=== PATIENT | female | born 1965 | race Hispanic/Latino ===

== ENCOUNTER 2018-06-24 00:46 | Emergency (ER) | payer BC, MEDICAID ==
[2018-06-24] MEDS ORDERED: KETOROLAC TROMETHAMINE 30MG/ML ONE (01:37)
[2018-06-24 01:42] LABS: APPEARANCE,URINE Clear (CLEAR); BILIRUBIN,URINE Negative (NEGATIVE); COLOR,URINE Yellow (YELLOW); GLUCOSE, URINE (UA) Negative (NEGATIVE); KETONES,URINE Trace mg/dL (NEGATIVE); LEUKOCYTE ESTERASE ,URINE Trace (NEGATIVE); NITRATE,URINE Negative (NEGATIVE); OCCULT BLOOD,URINE Negative (NEGATIVE); PH,URINE 6.5 (5.0-8.0); PROTEIN,URINE Negative (NEGATIVE); UROBILINOGEN,URINE 0.2 mg/dL (0.2-1.0)
[2018-06-24 01:53] LABS: CREATININE 0.7 mg/dL (0.5-1.5); POTASSIUM 3.4 mmol/L (3.5-5.1)
[2018-06-24 01:57] LABS: BASOPHILS % (AUTO) 3.1 % (0.0-5.0); EOSINOPHILS % (AUTO) 1.7 % (0.0-8.0); HEMATOCRIT 39.4 % (36-48); MEAN CORPUSCULAR HEMOGLOBIN 31.6 pg (27.0-33.0); MEAN CORPUSCULAR HGB CONC 34.5 g/dL (32.0-36.0); MEAN CORPUSCULAR VOLUME 91.6 fL (79-99); NEUTROPHILS % (AUTO) 68.2 % (40.0-77.0); PLATELET COUNT (AUTO) 286 K/uL (130-400); RED CELL DISTRIBUTION WIDTH 12.1 % (11.0-15.5); WHITE BLOOD COUNT (AUTO) 8.7 K/uL (4.8-10.8)
[2018-06-24 02:03] LABS: ALBUMIN 3.9 g/dL (3.5-5.0); BILIRUBIN,TOTAL 0.4 mg/dL (0.2-1.0); TOTAL PROTEIN, SERUM 7.6 g/dL (6.0-8.3)
[2018-06-24 02:05] LABS: BACTERIA,URINE Rare /HPF (None Seen); RBC,URINE 0-1 /HPF (0-1); SQUAMOUS EPITHELIAL CELL,UR 0-2 /HPF (0-2)
[2018-06-24 03:10] LABS: AMPHET/METH SCREEN,URINE NEGATIVE (NEGATIVE); BARBITURATE SCREEN, URINE NEGATIVE (NEGATIVE); BENZODIAZEPINES SCREEN,URINE NEGATIVE (NEGATIVE); CANNABINOID SCREEN,URINE NEGATIVE (NEGATIVE); COCAINE SCREEN,URINE NEGATIVE (NEGATIVE); OPIATE SCREEN,URINE NEGATIVE (NEGATIVE); PHENCYCLIDINE SCREEN,URINE NEGATIVE (NEGATIVE)
== END 2018-06-24 03:11 | disposition home or self-care (01) ==
LOC: EDH 00:46
DX: R07.89 Other chest pain (principal); J01.90 Acute sinusitis, unspecified; E11.9 Type 2 diabetes mellitus without complications; I10 Essential (primary) hypertension; F41.9 Anxiety disorder, unspecified
CPT/HCPCS: 36415; 70450; 80053; 80305; 81001; 82550; 83690; 84484; 85025; 93005; 96374; 99284; J1885

== ENCOUNTER 2018-10-07 20:24 | Emergency (ER) | payer BC, MEDICAID ==
[2018-10-07 20:55] LABS: APPEARANCE,URINE Clear (CLEAR); BILIRUBIN,URINE Negative (NEGATIVE); COLOR,URINE Yellow (YELLOW); GLUCOSE, URINE (UA) Negative (NEGATIVE); KETONES,URINE Negative (NEGATIVE); LEUKOCYTE ESTERASE ,URINE Negative (NEGATIVE); NITRATE,URINE Negative (NEGATIVE); OCCULT BLOOD,URINE Negative (NEGATIVE); PH,URINE 6.5 (5.0-8.0); PROTEIN,URINE Negative (NEGATIVE); UROBILINOGEN,URINE 0.2 mg/dL (0.2-1.0)
[2018-10-07 21:03] LABS: AMPHET/METH SCREEN,URINE NEGATIVE (NEGATIVE); BARBITURATE SCREEN, URINE NEGATIVE (NEGATIVE); BENZODIAZEPINES SCREEN,URINE NEGATIVE (NEGATIVE); CANNABINOID SCREEN,URINE NEGATIVE (NEGATIVE); COCAINE SCREEN,URINE NEGATIVE (NEGATIVE); OPIATE SCREEN,URINE NEGATIVE (NEGATIVE); PHENCYCLIDINE SCREEN,URINE NEGATIVE (NEGATIVE)
[2018-10-07 21:07] LABS: BASOPHILS % (AUTO) 0.7 % (0.0-5.0); HEMATOCRIT 39.7 % (36-48); MEAN CORPUSCULAR HEMOGLOBIN 31.7 pg (27.0-33.0); MEAN CORPUSCULAR HGB CONC 34.2 g/dL (32.0-36.0); MEAN CORPUSCULAR VOLUME 92.7 fL (79-99); MONOCYTES % (AUTO) 5.5 % (3.0-13.0); NEUTROPHILS % (AUTO) 58.8 % (40.0-77.0); PLATELET COUNT (AUTO) 347 K/uL (130-400); RED BLOOD CELL COUNT(AUTO) 4.29 MIL/uL (4.00-5.50); RED CELL DISTRIBUTION WIDTH 12.8 % (11.0-15.5); WHITE BLOOD COUNT (AUTO) 14.5 K/uL (4.8-10.8)
[2018-10-07 21:16] LABS: INR 0.93 (0.85-1.15); PARTIAL THROMBOPLASTIN TIME 28.9 SEC (26.3-35.5); PROTHROMBIN TIME 9.8 SEC (9.6-11.6)
[2018-10-07 21:18] LABS: CREATININE 0.9 mg/dL (0.5-1.5); POTASSIUM 4.4 mmol/L (3.5-5.1)
[2018-10-07] MEDS ORDERED: SODIUM CHLORIDE 0.9% 1000ML 1,000 ML IV ONE (21:22)
[2018-10-07 21:23] LABS: ALBUMIN 3.8 g/dL (3.5-5.0); BILIRUBIN,TOTAL 0.5 mg/dL (0.2-1.0); TOTAL PROTEIN, SERUM 8.5 g/dL (6.0-8.3)
== END 2018-10-07 22:46 | disposition home or self-care (01) ==
LOC: EDH 20:24
DX: F41.1 Generalized anxiety disorder (principal); R55 Syncope and collapse; I10 Essential (primary) hypertension; E11.9 Type 2 diabetes mellitus without complications; Z98.890 Other specified postprocedural states
CPT/HCPCS: 36415; 71045; 80053; 80305; 81003; 82550; 84484; 85025; 85610; 85730; 93005; 96360; 99285; J7030

== ENCOUNTER 2024-02-13 01:54 | Emergency (ER) | payer BC, MEDICAID ==
[~2024-02-13] VITALS: Ht 160 cm; Wt 81.6 kg
--- NOTE | 2024-02-13 01:58 | NUR ---
UA CUP PROVIDED
[2024-02-13] MEDS: LACTATED RINGERS 1000ML 1,000 ML IV ONE (02:14)
[2024-02-13] MEDS: ondanSETRON 4MG INJ IVP ONE (02:15)
[2024-02-13] MEDS: PANTOPrazole 40 MG/VIAL IVP ONE (02:15)
[2024-02-13 02:20] LABS: BASOPHILS # (AUTO) 0.08 K/uL (0.00-0.20); EOSINOPHILS % (AUTO) 2.4 % (0.0-8.0); HEMATOCRIT 44.3 % (36-48); IMMATURE GRANULOCYTE ABSOLUTE 0.03 K/uL (0-1); LYMPHOCYTES # (AUTO) 4.9 K/uL (1.0-4.8); LYMPHOCYTES % (AUTO) 58.8 % (21.0-51.0); MEAN CORPUSCULAR HEMOGLOBIN 30.7 pg (27.0-33.0); MEAN CORPUSCULAR HGB CONC 33.6 g/dL (32.0-36.0); MEAN CORPUSCULAR VOLUME 91.3 fL (79-99); MONOCYTES # (AUTO) 0.8 K/uL (0.1-1.0); MONOCYTES % (AUTO) 9.6 % (3.0-13.0); NEUTROPHILS # (AUTO) 2.3 K/uL (1.8-7.7); NEUTROPHILS % (AUTO) 27.8 % (40.0-77.0); PLATELET COUNT (AUTO) 282 K/uL (130-400); RED BLOOD CELL COUNT(AUTO) 4.85 MIL/uL (4.00-5.50); RED CELL DISTRIBUTION WIDTH 12.2 % (11.0-15.5); WHITE BLOOD COUNT (AUTO) 8.3 K/uL (4.8-10.8)
[2024-02-13 02:25] LABS: APPEARANCE,URINE CLEAR (CLEAR); BILIRUBIN,URINE NEGATIVE (NEGATIVE); COLOR,URINE COLORLESS (YELLOW); GLUCOSE, URINE (UA) TRACE mg/dL (NEGATIVE); KETONES,URINE NEGATIVE (NEGATIVE); LEUKOCYTE ESTERASE ,URINE NEGATIVE Leu/uL (NEGATIVE); NITRATE,URINE NEGATIVE (NEGATIVE); OCCULT BLOOD,URINE NEGATIVE (NEGATIVE); PH,URINE 5.5 (5.0-8.0); PROTEIN,URINE NEGATIVE (NEGATIVE); UROBILINOGEN,URINE 0.2 mg/dL (0.2-1.0)
[2024-02-13 02:26] LABS: ADD UA MICROSCOPIC YES
[2024-02-13 02:28] LABS: BACTERIA,URINE RARE /HPF (None Seen); RBC,URINE 0-1 /HPF (0-1); SQUAMOUS EPITHELIAL CELL,UR RARE /HPF (0-2); WBC,URINE 0-1 /HPF (0-1)
[2024-02-13 02:29] LABS: POTASSIUM 3.9 mmol/L (3.5-5.1)
[2024-02-13 02:34] LABS: INR 0.97 (0.85-1.15); MAGNESIUM 1.9 mg/dL (1.80-2.40); PROTHROMBIN TIME 10.5 SEC (9.6-11.6)
[2024-02-13 02:40] LABS: B-TYPE NATRIURETIC PEPTIDE < 5 pg/mL (0-100)
[2024-02-13] MEDS ORDERED: PANT40TA55 PO (02:58)
--- NOTE | 2024-02-13 02:58 | ERN ---
General Chief Complaint: Multiple Complaints Stated Complaint: PANIC ATTACK, CHEST PAIN, ABD PAIN Time Seen by MD: 01:56 Source: patient History of Present Illness Initial Comments PATIENT IS A 58-YEAR-OLD FEMALE COMING IN TO BE EVALUATED FOR CHEST PRESSURE. PATIENT STATES THAT CHEST PRESSURE HAS BEEN ONGOING FOUR DAYS. SHE NOTICES THE CHEST PRESSURE MORE WHEN SHE LAYS DOWN USUALLY AT NIGHT. THE CHEST PRESSURE CAUSES HER TO BE VERY ANXIOUS SHE DECIDED TO COME IN TO BE EVALUATED Allergies: Coded Allergies: No Known Allergies (Unverified Allergy, Unknown, 02/13/24) Past Medical History Past Medical History: Anxiety, Diabetes-Type II, Hypertension, Kidney Stone Past Surgical History: Other Surgical History Other: LEFT LEG ROS Dictation CONSTITUTIONAL: NO CHILLS, NO FEVER, NO WEAKNESS, NO DIAPHORESIS, NO MALAISE. HEAD/FACE: NO SIGNS OF TRAUMA. EENT: NO EYE PAIN, NO BLURRED VISION, NO TEARING, NO DOUBLE VISION, NO EAR PAIN, NO EAR DISCHARGE, NO NOSE PAIN, NO NASAL CONGESTION, NO THROAT PAIN, NO THROAT SWELLING, NO MOUTH PAIN. RESPIRATORY: NO COUGH, NO ORTHOPNEA, NO SOB, NO STRIDOR, NO WHEEZING. CARDIOVASCULAR: CHEST PAIN, NO EDEMA, NO PALPITATIONS, NO SYNCOPE. GASTROINTESTINAL/ABDOMINAL: NO ABDOMINAL PAIN, NO CONSTIPATION, NO DIARRHEA, NO NAUSEA, NO VOMITING. GENITOURINARY: NO ABNORMAL DISCHARGE, NO DYSURIA, NO FREQUENT URINATION, NO HEMATURIA. NO COMPLAINTS OF PAIN IN THE GENITALS. MUSCULOSKELETAL: NO BACK PAIN, NO GOUT, NO JOINT PAIN, NO JOINT SWELLING, NO MUSCLE PAIN, NO MUSCLE STIFFNESS, NO NECK PAIN. INTEGUMENTARY: NO CHANGE IN COLOR, NO CHANGE IN HAIR/NAILS, NO DRYNESS, NO LESION, NO LUMPS, NO RASH. NEUROLOGICAL/PSYCH: NO ANXIETY, NOT DEPRESSED, NO EMOTIONAL PROBLEM, NO HEADACHE, NO NUMBNESS, NO PRE-EXISTING DEFICIT, NO HISTORY OF SEIZURES, NO TREMORS, NO WEAKNESS. HEMATOLOGIC/LYMPHATIC: NOT ANEMIC, NO HISTORY OF BLOOD CLOTS, NO APPARENT BLEEDING, NO BRUISING, GLANDS NOT SWOLLEN. ALL SYSTEMS NEGATIVE, EXCEPT NOTED. Physical Exam Physical Exam Dictation VITAL SIGNS: REVIEWED. GENERAL APPEARANCE: ALERT, ORIENTED X3, NO ACUTE DISTRESS, OBESE. HEAD AND FACE: NON-TRAUMATIC. EYES: PERRL, PINK CONJUNCTIVAS, EYELID NO TRAUMA, ANTERIOR CHAMBER CLEAR. EARS: PINNAS INTACT AND NO SIGNS OF TRAUMA OR ERYTHEMA. EAR CANALS CLEAR AND NO DISCHARGE. TMS NO ERYTHEMA. NOSE: NO DISCHARGE, NO BLEEDING. OROPHARYNX: MOUTH NORMAL, TEETH NO CARIES, TONGUE PINK. PHARYNX CLEAR, NO ERYTHEMA. TONSILS NO EXUDATES, NO ABSCESSES NOTED. MUCOUS MEMBRANE MOIST. NECK: SUPPLE, NON-TENDER, NO THYROMEGALY, NO MASSES, NO JVD, NO BRUITS. BREAST: DEFERRED. CHEST: NO TENDERNESS, NO CREPITUS, NO PARADOXICAL MOVEMENT, NO RETRACTIONS. LUNGS: CLEAR, WELL-VENTILATED, SYMMETRIC, NO RALES, NO WHEEZING, NO RHONCHI, NO STRIDOR, GOOD BREATH SOUNDS BILATERALLY. HEART: REGULAR RATE, REGULAR RHYTHM, NO MURMUR, NO GALLOPS. VASCULAR: NO PERIPHERAL EDEMA. ABDOMEN: SOFT, POSITIVE BOWEL SOUNDS, NONDISTENDED, NO GUARDING, EPIGASTRIC TENDER, NO REBOUND, NO MASSES NO HEPATOMEGALY, NO SPLENOMEGALY, NO ALVARADO'S SIGN, NO HERNIAS. RECTAL: DEFERRED. GENITAL: DEFERRED. NEUROLOGICAL: NORMAL SPEECH, GROSS MOTOR FUNCTION INTACT, GROSS SENSORY FUNCTION INTACT. MUSCULOSKELETAL: NECK NONTENDER, FULL RANGE OF MOTION, BACK NONTENDER, FULL RANGE OF MOTION. EXTREMITIES: NONTENDER, FULL RANGE OF MOTION. SKIN: COLOR PINK, DRY, NO TURGOR, NO RASH, NO LACERATIONS, NO ABRASIONS, NO CONTUSIONS. LYMPHATICS: DEFERRED. Results Laboratory and Microbiology Lab and Micro Result Laboratory Tests Test 02/13/24 02:09 White Blood Count 8.3 K/uL (4.8-10.8) Red Blood Count 4.85 MIL/uL (4.00-5.50) Hemoglobin 14.9 g/dL (12.0-16.0) Hematocrit 44.3 % (36-48) Mean Corpuscular Volume 91.3 fL (79-99) Mean Corpuscular Hemoglobin 30.7 pg (27.0-33.0) Mean Corpuscular Hemoglobin Concent 33.6 g/dL (32.0-36.0) Red Cell Distribution Width 12.2 % (11.0-15.5) Platelet Count 282 K/uL (130-400) Mean Platelet Volume 10.8 fL (7.5-10.5) H Immature Granulocyte % (Auto) 0.4 % (0-1) Neutrophils (%) (Auto) 27.8 % (40.0-77.0) L Lymphocytes (%) (Auto) 58.8 % (21.0-51.0) H Monocytes (%) (Auto) 9.6 % (3.0-13.0) Eosinophils (%) (Auto) 2.4 % (0.0-8.0) Basophils (%) (Auto) 1.0 % (0.0-5.0) Neutrophils # (Auto) 2.3 K/uL (1.8-7.7) Lymphocytes # (Auto) 4.9 K/uL (1.0-4.8) H Monocytes # (Auto) 0.8 K/uL (0.1-1.0) Eosinophils # (Auto) 0.20 K/uL (0.00-0.70) Basophils # (Auto) 0.08 K/uL (0.00-0.20) Absolute Immature Granulocyte (auto 0.03 K/uL (0-1) Nucleated Red Blood Cells 0.0 % (0.0-0.19) Prothrombin Time 10.5 SEC (9.6-11.6) Prothromb Time International Ratio 0.97 (0.85-1.15) Urine Color COLORLESS (YELLOW) Urine Appearance CLEAR (CLEAR) Urine pH 5.5 (5.0-8.0) Urine Specific [place] 1.004 (1.001-1.031) Urine Protein NEGATIVE mg/dL (NEGATIVE) Urine Glucose (UA) TRACE mg/dL (NEGATIVE) H Urine Ketones NEGATIVE mg/dL (NEGATIVE) Urine Occult Blood NEGATIVE (NEGATIVE) Urine Nitrate NEGATIVE (NEGATIVE) Urine Bilirubin NEGATIVE mg/dL (NEGATIVE) Urine Urobilinogen 0.2 mg/dL (0.2-1.0) Urine Leukocyte Esterase NEGATIVE Panfilo/uL Urine RBC 0-1 /HPF (0-1) Urine WBC 0-1 /HPF (0-1) Urine Squamous Epithelial Cells RARE /HPF (0-2) Urine Bacteria RARE /HPF (None Seen) Sodium Level 134 mmol/L (136-145) L Potassium Level 3.9 mmol/L (3.5-5.1) Chloride Level 99 mmol/L (101-111) L Carbon Dioxide Level 29 mmol/L (21-32) Blood Urea Nitrogen 12 mg/dL (7-18) Creatinine 1.0 mg/dL (0.5-1.0) Glomerular Filtration Rate Calc 66 mL/min (>90) Random Glucose 211 mg/dL (70-105) H Total Calcium 9.3 mg/dL (8.5-10.1) Magnesium Level 1.90 mg/dL (1.80-2.40) Total Creatine Kinase 139 U/L (21-232) # Troponin I High Sensitivity 4 ng/L (4-50) B-Type Natriuretic Peptide < 5 pg/mL (0-100) Labs Reviewed?: Yes EKG/XRAY/US/CT/MRI EKG Comment 10/13/2023 TIME 12:13 A.M. VENTRICULAR RATE [address] WAVE ELEVATION OR DEPRESSION NC 133 MDM MDM: DIFFERENTIAL DIAGNOSIS: GERD, GASTRITIS, CHEST PRESSURE PATIENT IS A 58-YEAR-OLD FEMALE COMING IN TO BE EVALUATED FOR CHEST PRESSURE WITH CONSCIOUS HER TO HAVE ANXIETY. SHE STATES THAT THIS CHEST PRESSURE IS USUALLY PRESENTS AT NIGHT WHEN SHE LAYS DOWN. LABORATORY WORKUP WHICH INCLUDED CARDIAC WORKUP NEGATIVE FOR ACUTE FINDINGS. PATIENT RECEIVED IV PROTONIX STATES SHE FEELS MUCH BETTER. PATIENT WILL BE DISCHARGED IN STABLE CONDITION WITH A DIAGNOSIS OF GERD/GASTRITIS. MEDICATION WILL BE PROVIDED FOR SYMPTOMATIC RELIEF ALSO ADVISED HER APPROPRIATE FOLLOW UP WITH PCP IN 1-2 DAYS TO CONTINUE MONITORING SYMPTOMS. ED Course Orders Procedure Category Date Status Time Cbc With Differential LAB 02/13/24 Complete 02:03 Prothrombin Time With LAB 02/13/24 Complete INR 02:03 B-Type Natriuretic LAB 02/13/24 Complete Peptide 02:03 Chest 1vw RAD 02/13/24 Taken 02:03 12 Lead Ekg Tracing- EKG 02/13/24 Logged Technical 02:03 Lactated Ringers PHA 02/13/24 Complete 1000ml (Lactated 02:30 Ondansetron 4mg Inj PHA 02/13/24 Complete (Zofran 4mg Inj) 02:30 Magnesium LAB 02/13/24 Complete 02:03 Creatine Kinase, Total LAB 02/13/24 Complete 02:03 Troponin I High LAB 02/13/24 Complete Sensitivity 02:03 Urinalysis Profile LAB 02/13/24 Complete 02:03 Basic Metabolic Panel LAB 02/13/24 Complete 02:03 Pantoprazole 40mg Inj PHA 02/13/24 Complete (Protonix 40mg Inj 02:30 Current Medications Medications (Trade) Dose Ordered Sig/Celestine Route PRN Reason Start Time Stop Time Status Last Admin Dose Admin Lactated Ringer's 1,000 ml @ 0 mls/hr ONCE ONCE IV 02/13/24 02:30 02/13/24 02:31 DC 02/13/24 02:14 Ondansetron HCl (zoFRAN 4MG INJ) 4 mg ONCE ONCE IVP 02/13/24 02:30 02/13/24 02:31 DC 02/13/24 02:15 Pantoprazole Sodium (PROTonix 40MG INJ) 40 mg ONCE ONCE IVP 02/13/24 02:30 02/13/24 02:31 DC 02/13/24 02:15 Vital Signs Date Time Temp Pulse Resp B/P (MAP) Pulse Ox O2 Delivery O2 Flow Rate FiO2 02/13/24 02:17 98.4 98 18 161/75 100 Room Air* 0 21 02/13/24 01:56 96.8 88 16 178/88 98 Room Air HEART Score Response (Comments) Value History: Low suspicion (0) 0 EKG: Normal 0 Age: 45-65yrs (+1) 1 Risk Factors: No known risk factors (0) 0 Initial Troponin: Normal limit (0) 0 HEART Score Risk: Low Risk for MACE (1-3) Total 1 DX & DISP Disposition: Discharge Departure Impression: Primary Impression: GERD (gastroesophageal reflux disease) Condition: Stable Scripts Pantoprazole Sodium (Protonix) 40 Mg Ectab 1 TAB PO DAILY for 30 Days, #30 TAB 0 Refills Prov: TONY SMITH MD 02/13/24 Additional Instructions: FOLLOW-UP WITH PRIMARY CARE PROVIDER IN 1 TO 2 DAYS. TAKE MEDICATIONS DIRECTED HERE IN THE EMERGENCY ROOM. OKAY TO CONTINUE HOME MEDICATIONS UNLESS OTHERWISE DISCUSSED DURING YOUR VISIT IN THE EMERGENCY ROOM TODAY. RETURN TO YOUR NEAREST EMERGENCY ROOM IF SYMPTOMS WORSEN OR IF THERE IS NO IMPROVEMENT. CALL 911 IF YOU NEED IMMEDIATE ASSISTANCE. TAKE TYLENOL [id number] NEEDED AND IF NO CONTRAINDICATIONS ARE PRESENT. INCREASE ORAL HYDRATION. A WOUND CULTURE OR URINE CULTURE WAS ORDERED HERE IN THE EMERGENCY ROOM DEPARTMENT PLEASE FOLLOW-UP WITH PRIMARY CARE PROVIDER AND ADVISE THEM TO GET REPEAT PORTS FROM OUR FACILITY. IF YOU HAD ANY JAIRON WRAP/SPLINTS THAT WERE APPLIED HERE, PLEASE DO NOT REMOVE THEM UNTIL YOU SEE YOUR PRIMARY CARE OR SPECIALTY. REFERRALS: Referrals: FROILAN DOMÍNGUEZ MD (PCP) Time of Disposition: 02:57 TONY SMITH MD Feb 13, 2024 02:58
[2024-02-13 03:06] VITALS: BP 145/65; PULSE 98; RESP 18; TEMP 98.3; O2SAT 98
--- NOTE | 2024-02-13 05:49 | EKG ---
[facility] Test Date: 2024-02-13 Test Time: 02:13:54 Pat Name: ARNALDO GILLESPIE Department: [facility] Room: Gender: F [employer] Development Technician: [id number] : [id number] Requested By: TONY SMITH Order Number: [id number] Reading MD: Lillian Solorzano Measurements Intervals [place] Rate: 85 P: 33 [place]: 133 QRS: 39 QRSD: 70 T: 20 QT: 362 QTc: 430 Interpretive Statements Sinus rhythm Compared to ECG 10/07/2018 20:41:30 No significant changes Electronically Signed On 02-15-2024 11:33:11 PHOTOCOMPOSING MACHINE OPERATOR by Lillian Solorzano Please click the below link to view image of tracing.
--- NOTE | 2024-02-13 08:24 | HMCIMG ---
CHEST 1VW REASON: CHEST COMPARISON: 10/07/2018 FINDINGS: Single view of the chest was obtained. Lungs are clear. Heart size is normal. There is no pulmonary vascular congestion. Mediastinum and bony thorax appear unremarkable. IMPRESSION: 1. Normal single view chest x-ray.
== END 2024-02-13 03:06 | disposition home or self-care (01) ==
LOC: EDH 01:54
DX: K21.9 Gastro-esophageal reflux disease without esophagitis (principal); E11.9 Type 2 diabetes mellitus without complications; F41.9 Anxiety disorder, unspecified; I10 Essential (primary) hypertension; Z98.890 Other specified postprocedural states
CPT/HCPCS: 99285; 96374; 71045; 96375; 82550; 83735; 84484; 80048; 83880; 85025; 85610; 81001; 36415; 93005; J7120; J2405; J2470

== ENCOUNTER 2024-05-21 12:28 | Emergency (ER) | payer SELFPAY ==
[~2024-05-21] VITALS: Ht 154.9 cm; Wt 64.9 kg
[~2024-05-21 12:28] MED LIST: PANT40TA55 PO
[2024-05-21] MEDS ORDERED: CIPOTIC OTIC (13:35)
--- NOTE | 2024-05-21 13:36 | ERN ---
General Chief Complaint: Foreignbody Ear Stated Complaint: PROBLEM WITH LEFT EAR Time Seen by MD: 13:20 Time Seen by Midlevel: 13:20 Source: patient History of Present Illness Initial Comments The patient is a 58-year-old female presenting to the emergency department with left ear pain. She states that last night she felt a foreign body sensation to her left ear. Her daughter put hydrogen peroxide with little relief. The next morning she woke up with worsening pain and a foreign body sensation she called her primary care doctor who recommended she report to the ER for further evaluation. Allergies: Coded Allergies: No Known Allergies (Unverified Allergy, Unknown, 02/13/24) Home Meds Active Scripts Pantoprazole Sodium (Protonix) 40 Mg Ectab, 1 TAB PO DAILY for 30 Days, #30 TAB 0 Refills Prov:TONY SMITH MD 02/13/24 Past Medical History Past Medical History: No Pertinent History Past Surgical History: None Surgical History Other: LEFT LEG ROS Dictation CONSTITUTIONAL: Negative except for HPI HEAD/FACE: Negative except for HPI EENT: Negative except for HPI RESPIRATORY: Negative except for HPI GASTROINTESTINAL/ABDOMINAL: Negative except for HPI GENITOURINARY: Negative except for HPI MUSCULOSKELETAL: Negative except for HPI INTEGUMENTARY: Negative except for HPI NEUROLOGICAL/PSYCH: Negative except for HPI HEMATOLOGIC/LYMPHATIC: Negative except for HPI All Systems Negative, Except as noted above. 13 point review of systems assessed and all negative except for above. Physical Exam Physical Exam Dictation PHYSICAL EXAM: GENERAL: alert,, awake oriented x 3 HEENT: EOMI, Sclera non icteric, moist mucosa, erythema to the left external ear canal NECK: Supple, no JVD, trachea midline LUNGS: Clear breath sounds bilaterally. No wheezes HEART: Regular rate and rhythm. Normal S1 and S2, without murmurs ABD: Abdomen soft, nontender. Bowel sounds present EXT: No clubbing or cyanosis, NEURO: Alert and oriented to person, follows commands MDM MDM: Differential diagnosis: Foreign body, otitis externa, otitis media There are no social concerns with this patient. Prescription drug management Prescriptions will include: Medical management and examination interpretation discussions were had by me with other qualified healthcare professionals as indicated for the patient's care. ED Course Vital Signs Date Time Temp Pulse Resp B/P (MAP) Pulse Ox O2 Delivery O2 Flow Rate FiO2 05/21/24 13:21 85 18 157/96 99 Room Air 0 DX & DISP Disposition: Discharge Departure Impression: Primary Impression: Left otitis externa Condition: Stable Scripts Ciprofloxacin HCl/Hc (Cipro Hc Otic Susp) 0.2 %-1 % Otsus 3 DROP OTIC BID for 7 Days, #10 ML 0 Refills Prov: KHAI VILLAGOMEZ 05/21/24 Additional Instructions: Your physical examination does not show any evidence of a foreign body or bug in your left ear. However, there is redness to the left ear canal. This may be related to an insect bite inside the ear. I have given you a prescription for Ciprodex which should help improve your symptoms over the next couple of days. Follow up with your primary care doctor in the next 24-48 hours for further evaluation Referrals: FROILAN DOMÍNGUEZ MD (PCP) Time of Disposition: 13:33 I have reviewed the case, and I agree with, Diagnosis and Plan I performed the substantive portion of the visit. I have reviewed and personally made and approve the management plan that is documented in the note by myself or the SU. I acknowledge for responsibility for the patient's management plan. KHAI VILLAGOMEZ May 21, 2024 13:36
[2024-05-21 14:05] VITALS: BP 151/89; PULSE 85; RESP 16; TEMP 99; O2SAT 96
[2024-05-21] MEDS: CIPROFLOXACIN HCL 0.2%/HYDROCORT 1% 10 ML OTIC SUSP OTIC ONE (14:07)
== END 2024-05-21 14:10 | disposition home or self-care (01) ==
LOC: EDH 12:28
DX: H60.92 Unspecified otitis externa, left ear (principal); Z79.899 Other long term (current) drug therapy
CPT/HCPCS: 99283

== ENCOUNTER 2024-06-04 09:48 | Emergency (ER) | payer SELFPAY ==
[~2024-06-04] VITALS: Ht 160 cm; Wt 83.0 kg
[~2024-06-04 09:48] MED LIST changes: +CIPOTIC OTIC
[2024-06-04] MEDS ORDERED: AMOX1TAB16 PO (10:20)
--- NOTE | 2024-06-04 10:23 | ERN ---
General Chief Complaint: Earache Stated Complaint: EARACHE Time Seen by MD: 09:50 History of Present Illness Initial Comments 58-year-old female who presents with a left ear pain. She reports it has been on and off for the last month or so. She was treated for otitis externa but she reports that it is still uncomfortable. Allergies: Coded Allergies: No Known Allergies (Unverified Allergy, Unknown, 02/13/24) Home Meds Active Scripts Ciprofloxacin HCl/Hc (Cipro Hc Otic Susp) 0.2 %-1 % Otsus, 3 DROP OTIC BID for 7 Days, #10 ML 0 Refills Prov:KHAI VILLAGOMEZ 05/21/24 Pantoprazole Sodium (Protonix) 40 Mg Ectab, 1 TAB PO DAILY for 30 Days, #30 TAB 0 Refills Prov:TONY SMITH MD 02/13/24 Past Medical History Past Medical History: No Pertinent History, Diabetes-Type II, Heart Disease, Hypertension, Kidney Stone Past Surgical History: Other, Surgical History Other: LEFT LEG SX ROS Dictation CONSTITUTIONAL: Subjective fever yesterday EENT: Left ear pain RESPIRATORY: No cough, no orthopnea, no SOB, no stridor, no wheezing. CARDIOVASCULAR: No chest pain, no edema, no palpitations, no syncope. GASTROINTESTINAL/ABDOMINAL: No abdominal pain, no constipation, no diarrhea, no nausea, no vomiting. GENITOURINARY: No abnormal discharge, no dysuria, no frequent urination, no hematuria. No complaints of pain in the genitals. MUSCULOSKELETAL: No back pain, no gout, no joint pain, no joint swelling, no muscle pain, no muscle stiffness, no neck pain. INTEGUMENTARY: No change in color, no change in hair/nails, no dryness, no lesion, no lumps, no rash. NEUROLOGICAL/PSYCH: No anxiety, not depressed, no emotional problem, no headache, no numbness, no pre-existing deficit, no history of seizures, no tremors, no weakness. HEMATOLOGIC/LYMPHATIC: Not anemic, no history of blood clots, no apparent bleeding, no bruising, glands not swollen. All Systems Negative, Except as Noted. Physical Exam Physical Exam Dictation VITAL SIGNS: Reviewed. GENERAL APPEARANCE: Alert, oriented x3, no acute distress, obese. HEAD AND FACE: Non-traumatic. EYES: PERRL, pink conjunctivas, eyelid no trauma, anterior chamber clear. EARS: TM appears intact, no signs of otitis interna, does have some tenderness to the pinna without swelling, the canal appears clear. NOSE: No discharge, no bleeding. OROPHARYNX: Mouth normal, teeth no caries, tongue pink. Pharynx clear, no erythema. Tonsils no exudates, no abscesses noted. Mucous membrane moist. NECK: Supple, non-tender, no thyromegaly, no masses, no JVD, no bruits. BREAST: Deferred. CHEST: No tenderness, no crepitus, no paradoxical movement, no retractions. LUNGS: Clear, well-ventilated, symmetric, no rales, no wheezing, no rhonchi, no stridor, good breath sounds bilaterally. HEART: Regular rate, regular rhythm, no murmur, no gallops. VASCULAR: No peripheral edema. ABDOMEN: Soft, positive bowel sounds, nondistended, no guarding, nontender, no rebound, no masses no hepatomegaly, no splenomegaly, no Arguelles's sign, no hernias. RECTAL: Deferred. GENITAL: Deferred. NEUROLOGICAL: Normal speech, gross motor function intact, gross sensory fun ction intact. MUSCULOSKELETAL: Neck nontender, full range of motion, back nontender, full range of motion. EXTREMITIES: Nontender, full range of motion. SKIN: Color pink, dry, no turgor, no rash, no lacerations, no abrasions, no contusions. LYMPHATICS: Deferred. MDM CC: Left ear pain Historian: Patient Comorbidities: Recent left otitis externa Limitations by social determinants of health: Uninsured Differential diagnosis: OE, om, parotid gland swelling, other Vital signs are stable Clinical exam she was some tenderness of the pinna area possibly in the parotid gland. There is no swelling. The ear canal actually looks okay, and there is some mild erythema to the TM. Patient was already taking Ciprodex. We will recommend continue with this. We will give some amoxicillin. Patient does not need to follow up with an ENT. You do not see any concerning findings at this time. ED Course Vital Signs Date Time Temp Pulse Resp B/P (MAP) Pulse Ox O2 Delivery O2 Flow Rate FiO2 06/04/24 09:50 98.8 84 18 136/82 96 Room Air 0 DX & DISP Disposition: Discharge Departure Impression: Primary Impression: Left ear pain Condition: Stable Scripts Amoxicillin/Potassium Clav (Amox Tr-K Clv 875-125 mg Tab) 875 Mg-125 Mg Tablet 1 TAB PO BID for 10 Days, #20 TAB 0 Refills Prov: ARIADNE GIBBS DO 06/04/24 Additional Instructions: I have prescribed amoxicillin-clavulanate, which is an antibiotic. Take as prescribed. Alternate tylenol (1000mg) and ibuprofen (800mg) every 4 hours for pain or fever. These medications are over the counter. Continue using the eardrops. You need to follow up with an ENT doctor for evaluation. Try Dr Chavez or Dr Pepe. Referrals: FROILAN DOMÍNGUEZ MD (PCP) GIOVANY CHAVEZ III, MD, RYAN E DO Jun 04, 2024 10:23
[2024-06-04 11:00] VITALS: BP 131/79; PULSE 82; RESP 18; TEMP 98.8; O2SAT 98
== END 2024-06-04 11:01 | disposition home or self-care (01) ==
LOC: EDH 09:48
DX: H92.02 Otalgia, left ear (principal); I11.9 Hypertensive heart disease without heart failure; E11.9 Type 2 diabetes mellitus without complications; Z79.899 Other long term (current) drug therapy; Z98.890 Other specified postprocedural states
CPT/HCPCS: 99283

== ENCOUNTER 2024-07-10 02:51 | Emergency (ER) | payer SELFPAY ==
[~2024-07-10] VITALS: Ht 162.6 cm; Wt 85.7 kg
[~2024-07-10 02:51] MED LIST changes: +AMOX1TAB16 PO
[2024-07-10 02:52] VITALS: TEMP 97.7
--- NOTE | 2024-07-10 02:53 | NUR ---
UA CUP PROVIDED
--- NOTE | 2024-07-10 03:03 | ERN ---
ED Note History of Present Illness Stated Complaint: RT FLANK PAIN Chief Complaint: Flank Pain Time Seen by MD: 02:59 Time Seen by Midlevel: 02:59 Dictation: The patient is a 58-year-old female with a history of diabetes, hypertension who presents to the emergency department with complaints of right upper abdominal pain onset 12 p.m.. Patient reports that eight month ago she had a history of kidney stones then three weeks ago she was told she had some gallstones. Denies any nausea or vomiting. Denies any fevers. She stated that she ate enchiladas and greasy food. She had similar colic and was seen at another emergency room a few months ago. Allergies: Coded Allergies: No Known Allergies (Unverified Allergy, Unknown, 02/13/24) Home Meds Active Scripts Amoxicillin/Potassium Clav (Amox Tr-K Clv 875-125 mg Tab) 875 Mg-125 Mg Tablet, 1 TAB PO BID for 10 Days, #20 TAB 0 Refills Prov:ARIADNE GIBBS DO 06/04/24 Ciprofloxacin HCl/Hc (Cipro Hc Otic Susp) 0.2 %-1 % Otsus, 3 DROP OTIC BID for 7 Days, #10 ML 0 Refills Prov:KHAI VILLAGOMEZ 05/21/24 Pantoprazole Sodium (Protonix) 40 Mg Ectab, 1 TAB PO DAILY for 30 Days, #30 TAB 0 Refills Prov:TONY SMITH MD 02/13/24 Past Medical History Past Medical History: No Pertinent History, Diabetes-Type II, Heart Disease, Hypertension, Kidney Stone Surgical History: Other, Surgical History Other: LEFT LEG SX Social History: Negative History: Not Applicable RN Note Reviewed/Agreed w/PFSH: Yes Review of System Dictation Constitutional: Negative for fever,chills, and weight loss Eyes: Negative for injury, pain,redness, and discharge ENT: Negative for injury,pain or swelling Cardiovascular: Negative for chest pain, palpitations, and edema Respiratory: Negative for shortness of breath, cough, and wheezing, Abdomen/GI: Negative for nausea, vomiting, diarrhea, and constipation positive for abdominal pain Back: Negative for injury and pain : Negative for injury, bleeding and discharge MS/Extremity: Negative for injury and deformity Skin: Negative for rash, and discoloration Neuro: Negative for headache, weakness, numbness, tingling, and seizure Psych: Negative for suicide ideation, homicidal ideation, and hallucinations Initial Vital Sign VS Vital Signs Date Time Temp Pulse Resp B/P (MAP) Pulse Ox O2 Delivery O2 Flow Rate FiO2 07/10/24 02:52 97.7 92 20 154/94 98 Room Air 07/10/24 05:31 0 21 Physical Exam Dictation Vital Signs reviewed General Appearance: Alert, oriented x 3, no acute distress, well developed, nourished. Head and Face: non-traumatic. Eyes: PERRL, pink conjunctivas, eyelid no trauma, anterior chamber with arcus senilis. Ears: Pinnas intact and no signs of trauma or erythema ear canals clear and no discharge TM no erythema Nose: No discharge, no bleeding. Oropharynx: Mouth normal, tongue pink. pharynx clear,no erythema, tonsils no exudates, no abscesses noted, mucous membrane moist Neck: Supple, non-tender, no thyromegaly, no masses, no JVD, no bruits Breast:Deferred Chest:No tenderness, no crepitus, no paradoxical movement, no retractions Lungs:Clear, well-ventilated, symmetric, no rales, no wheezing, no rhonchi, no stridor, good breath sounds bilaterally Heart: Regular rate, regular rhythm, no murmur, no gallops Vascular: no peripheral edema, Abdomen: Soft, positive bowel sounds, nondistended, no guarding, nontender, no rebound, no masses no hepatomegaly, no splenomegaly, no Arguelles's sign, no hernias. Rectal: Deferred Genital: Deferred Neurological: Normal speech, motor function intact, sensory function intact Musculoskeletal: Neck nontender, full range of motion, back nontender, full range of motion, Extremities: nontender, full range of motion Skin: Color pink, dry, no turgor, no rash, no lacerations, no abrasions, no contusions. Lymphatic: Deferred Results (Laboratory/Radiology) Laboratory/Radiology Laboratory Tests Test 07/10/24 03:33 07/10/24 04:45 Urine Color COLORLESS (YELLOW) Urine Appearance CLEAR (CLEAR) Urine pH 6.0 (5.0-8.0) Urine Specific [place] 1.005 (1.001-1.031) Urine Protein NEGATIVE mg/dL (NEGATIVE) Urine Glucose (UA) 30 mg/dL (NEGATIVE) H Urine Ketones NEGATIVE mg/dL (NEGATIVE) Urine Occult Blood NEGATIVE (NEGATIVE) Urine Nitrate NEGATIVE (NEGATIVE) Urine Bilirubin NEGATIVE mg/dL (NEGATIVE) Urine Urobilinogen 0.2 mg/dL (0.2-1.0) Urine Leukocyte Esterase NEGATIVE Panfilo/uL Urine RBC 0-1 /HPF (0-1) Urine WBC 0-1 /HPF (0-1) Urine Squamous Epithelial Cells RARE /HPF (0-2) Urine Bacteria None /HPF (None Seen) White Blood Count 10.8 K/uL (4.8-10.8) Red Blood Count 4.50 MIL/uL (4.00-5.50) Hemoglobin 13.7 g/dL (12.0-16.0) Hematocrit 40.7 % (36-48) Mean Corpuscular Volume 90.4 fL (79-99) Mean Corpuscular Hemoglobin 30.4 pg (27.0-33.0) Mean Corpuscular Hemoglobin Concent 33.7 g/dL (32.0-36.0) Red Cell Distribution Width 12.1 % (11.0-15.5) Platelet Count 285 K/uL (130-400) Mean Platelet Volume 10.9 fL (7.5-10.5) H Immature Granulocyte % (Auto) 0.3 % (0-1) Neutrophils (%) (Auto) 51.8 % (40.0-77.0) Lymphocytes (%) (Auto) 37.8 % (21.0-51.0) Monocytes (%) (Auto) 7.0 % (3.0-13.0) Eosinophils (%) (Auto) 2.2 % (0.0-8.0) Basophils (%) (Auto) 0.9 % (0.0-5.0) Neutrophils # (Auto) 5.6 K/uL (1.8-7.7) Lymphocytes # (Auto) 4.1 K/uL (1.0-4.8) Monocytes # (Auto) 0.8 K/uL (0.1-1.0) Eosinophils # (Auto) 0.24 K/uL (0.00-0.70) Basophils # (Auto) 0.10 K/uL (0.00-0.20) Absolute Immature Granulocyte (auto 0.03 K/uL (0-1) Nucleated Red Blood Cells 0.0 % (0.0-0.19) Sodium Level 135 mmol/L (136-145) L Potassium Level 4.2 mmol/L (3.5-5.1) Chloride Level 99 mmol/L (101-111) L Carbon Dioxide Level 31 mmol/L (21-32) Blood Urea Nitrogen 15 mg/dL (7-18) Creatinine 1.0 mg/dL (0.5-1.0) Glomerular Filtration Rate Calc 66 mL/min (>90) Random Glucose 199 mg/dL (70-105) H Total Calcium 9.3 mg/dL (8.5-10.1) Total Bilirubin 0.3 mg/dL (0.2-1.0) Direct Bilirubin 0.1 mg/dL (0.0-0.3) Aspartate Amino Transf (AST/SGOT) 34 U/L (10-37) Alanine Aminotransferase (ALT/SGPT) 52 U/L (12-78) Alkaline Phosphatase 124 U/L (50-136) Total Creatine Kinase 72 U/L (21-232) # Troponin I High Sensitivity 4.2 ng/L (4-50) Total Protein 8.3 g/dL (6.0-8.3) Albumin 3.6 g/dL (3.5-5.0) Lipase 47 U/L (16-77) Labs Reviewed?: Yes ED Course ED Course Orders Procedure Category Date Status Time Vital Signs Per CPOE 07/10/24 Transmitted Routine 02:53 Saline Lock Iv CPOE 07/10/24 Transmitted 02:53 Cbc With Differential LAB 07/10/24 Complete 02:53 Urinalysis Profile LAB 07/10/24 Complete 02:53 Us Abdominal Ruq\Ltd US 07/10/24 Taken 03:00 12 Lead Ekg Tracing- EKG 07/10/24 Complete Technical 03:00 0.9%Nacl 1000ml (Ns PHA 07/10/24 Complete 1000ml) 03:00 Morphine 4mg Syg PHA 07/10/24 Complete (Morphine 4mg Syg) 03:00 Ondansetron 4mg Inj PHA 07/10/24 Complete (Zofran 4mg Inj) 03:00 Hepatic Function Panel LAB 07/10/24 Complete 03:00 Basic Metabolic Panel LAB 07/10/24 Complete 03:00 Lipase LAB 07/10/24 Complete 03:00 Cardiac Panel LAB 07/10/24 Complete 03:00 Acetaminophen 325 Tab PHA 07/10/24 Complete (Tylenol 325mg Tab 05:11 Acetaminophen 325 Tab PHA 07/10/24 Complete (Tylenol 325mg Tab 05:12 Current Medications Medications (Trade) Dose Ordered Sig/Celestine Route PRN Reason Start Time Stop Time Status Last Admin Dose Admin Acetaminophen (TYLenol 325MG TAB) 325 mg STK-MED ONCE .ROUTE 07/10/24 05:12 07/10/24 05:12 DC Acetaminophen (TYLenol 325MG TAB) 650 mg ONCE STAT PO 07/10/24 05:11 07/10/24 05:13 DC 07/10/24 05:18 Morphine Sulfate (morPHINE 4MG SYG) 4 mg ONCE ONCE IVP 07/10/24 03:00 07/10/24 03:03 DC Ondansetron HCl (zoFRAN 4MG INJ) 4 mg ONCE ONCE IVP 07/10/24 03:00 07/10/24 03:03 DC Sodium Chloride 1,000 ml @ 0 mls/hr ONCE ONCE IV 07/10/24 03:00 07/10/24 03:03 DC 07/10/24 04:45 Vital Signs Date Time Temp Pulse Resp B/P (MAP) Pulse Ox O2 Delivery O2 Flow Rate FiO2 07/10/24 05:31 77 16 130/78 97 Room Air* 0 21 07/10/24 02:52 97.7 92 20 154/94 98 Room Air We will perform diagnostic labs, advanced imaging and administer medications according to the patient's complaint. Once the results are available, will review and personally interpreted the labs to rule out any acute life- threatening emergency the trach require immediate intervention and treatment. I will then re-evaluate the patient after treatment and diagnostic exams have return to determine whether the patient requires any further testing, can safely be discharged home or need further admission to hospital for additional treatment and evaluation. Reviewed labs CBC is with a normal limits white count is 10.8 urinalysis is unremarkable BNP 7 is also unremarkable. LFTs okay Ultrasound of the abdomen showed only gallstones Her pain was significantly better and I counseled her extensively on bland low- fat diet and weight loss and GERD precautions. She verbalized full understanding I instructed her to follow up with her primary care physician and get a referral to surgery to evaluate and see if the gallbladder needs to come out at some point Medical Decision Making MDM The patient is a 58-year-old female with a history of diabetes, hypertension who presents to the emergency department with complaints of right upper abdominal pain onset 12 p.m.. Patient reports that eight month ago she had a history of kidney stones then three weeks ago she was told she had some gallstones. Denies any nausea or vomiting. Denies any fevers. Differential diagnosis: Biliary colic, cholecystitis, peptic ulcer disease, gastritis, renal colic Rationale: Tests considered and ordered secondary to shared decision making include: Previous outside records reviewed: Old ER visits. Risk of complication and/or morbidity or mortality of patient management: None Medications-Per medication reconciliation Need for hospitalization: Patient does not meet criteria for hospitalization. Need for emergency major/minor surgery: No There are no social concerns with this patient. Prescription drug management Prescriptions will include symptomatic care Patient's prior external medical records from other ER visits were reviewed by me as indicated. Prior testing and results from previous visits were reviewed. Prior tests were taken into account with medical decision making and resource utilization, independent historian/historians were used to obtain complete medical history. I independently interpreted the test that were performed, results were reviewed by me and considered findings on radiology if ordered. Medical management and examination interpretation discussions were had by me with other qualified healthcare professionals as indicated for the patient's care. Problem List Problem List: (1) Cholelithiasis (2) Biliary colic (3) GERD (gastroesophageal reflux disease) DX & DISP Disposition: Discharge Departure Impression: Primary Impression: Biliary colic Additional Impressions: Cholelithiasis, GERD (gastroesophageal reflux disease) Condition: Stable Additional Instructions: Patient and the caregiver have been informed of all the diagnostic tests and the imaging conducted during the today's visit to the emergency room and has verbalized understanding of the results I have personally reviewed and interpreted all diagnostic exams performed here in the ER today as well as the vital signs documented by the nursing staff. The patient is now being discharged to home and should follow up with the primary care physician or the specialist as directed by the ER staff. Follow-up with primary care provider in 1 to 2 days. Take medications as directed here in the emergency room. Okay to continue home medications unless otherwise discussed during your visit in the emergency room today. Return to your nearest emergency room if symptoms worsen or if there is no improvement. Call 911 if you need immediate assistance. Take Tylenol or Motrin [id number] as needed and if no contraindications are present. Increase oral hydration. A wound culture or urine culture was ordered here in the emergency room department please follow-up with primary care provider and advise them to get repeat ports from our facility. If you had any Foster wrap/splints that were applied here, please do not remove them until you see your primary care or specialty. Referrals: FROILAN DOMÍNGUEZ MD (PCP) KARINA PATEL Jul 10, 2024 03:02 SPRING HANNA MD Jul 10, 2024 06:17
--- NOTE | 2024-07-10 03:10 | EKG ---
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
--- NOTE | 2024-07-10 03:33 | NUR ---
UA COLLECTED AND SENT. PT AMBULATING IN LOBBY. GAIT WNL. GOOD EVEN CHEST RISE AND FALL OBSERVED.
[2024-07-10 03:46] LABS: APPEARANCE,URINE CLEAR (CLEAR); BILIRUBIN,URINE NEGATIVE (NEGATIVE); COLOR,URINE COLORLESS (YELLOW); GLUCOSE, URINE (UA) 30 mg/dL (NEGATIVE); KETONES,URINE NEGATIVE (NEGATIVE); LEUKOCYTE ESTERASE ,URINE NEGATIVE Leu/uL (NEGATIVE); NITRATE,URINE NEGATIVE (NEGATIVE); OCCULT BLOOD,URINE NEGATIVE (NEGATIVE); PROTEIN,URINE NEGATIVE (NEGATIVE); UROBILINOGEN,URINE 0.2 mg/dL (0.2-1.0)
[2024-07-10 03:47] LABS: ADD UA MICROSCOPIC YES; RBC,URINE 0-1 /HPF (0-1); SQUAMOUS EPITHELIAL CELL,UR RARE /HPF (0-2); WBC,URINE 0-1 /HPF (0-1)
[2024-07-10] MEDS: 0.9%NACL 1000ML 1,000 ML IV ONE (04:45)
[2024-07-10] MEDS: morPHINE 4 MG SYG IVP ONE (04:45)
[2024-07-10] MEDS: ondanSETRON 4MG INJ IVP ONE (04:45)
[2024-07-10 05:03] LABS: BASOPHILS % (AUTO) 0.9 % (0.0-5.0); EOSINOPHILS # (AUTO) 0.24 K/uL (0.00-0.70); EOSINOPHILS % (AUTO) 2.2 % (0.0-8.0); HEMATOCRIT 40.7 % (36-48); IMMATURE GRANULOCYTE ABSOLUTE 0.03 K/uL (0-1); LYMPHOCYTES # (AUTO) 4.1 K/uL (1.0-4.8); LYMPHOCYTES % (AUTO) 37.8 % (21.0-51.0); MEAN CORPUSCULAR HEMOGLOBIN 30.4 pg (27.0-33.0); MEAN CORPUSCULAR HGB CONC 33.7 g/dL (32.0-36.0); MEAN CORPUSCULAR VOLUME 90.4 fL (79-99); MONOCYTES # (AUTO) 0.8 K/uL (0.1-1.0); NEUTROPHILS # (AUTO) 5.6 K/uL (1.8-7.7); NEUTROPHILS % (AUTO) 51.8 % (40.0-77.0); PLATELET COUNT (AUTO) 285 K/uL (130-400); RED CELL DISTRIBUTION WIDTH 12.1 % (11.0-15.5); WHITE BLOOD COUNT (AUTO) 10.8 K/uL (4.8-10.8)
[2024-07-10 05:13] LABS: POTASSIUM 4.2 mmol/L (3.5-5.1)
[2024-07-10] MEDS: acetaMINOPHEN 325 MG TAB PO STA (05:18)
[2024-07-10] MEDS: acetaMINOPHEN 325 MG TAB ONE (05:18)
[2024-07-10 05:20] LABS: ALBUMIN 3.6 g/dL (3.5-5.0); BILIRUBIN,DIRECT 0.1 mg/dL (0.0-0.3); BILIRUBIN,TOTAL 0.3 mg/dL (0.2-1.0); TOTAL PROTEIN, SERUM 8.3 g/dL (6.0-8.3)
[2024-07-10 05:31] VITALS: BP 130/78; PULSE 77; RESP 16; O2SAT 97
--- NOTE | 2024-07-10 08:21 | HMCIMG ---
ULTRASOUND ABDOMEN LIMITED INDICATION: Right upper abdominal pain COMPARISON: None FINDINGS: The liver is slightly enlarged and increased in echogenicity; no focal lesion demonstrated. Main portal vein is patent, and normal direction of vascular flow demonstrated. Liver length is measured at 17.0 cm. The common bile duct diameter measures 4.0 mm. Nonmobile echogenic shadowing gallbladder neck stone without associated pericholecystic fluid. No sonographic Arguelles's sign elicited by the ultrasound electronic warfare operator. Wall thickness measures 3.0 mm. Visible portions of the pancreas appear normal. The right kidney measures 12.1 x 5.5 x 5.0 cm,and is normal in echogenicity, without evidence for hydronephrosis.No shadowing stones demonstrated. No free fluid demonstrated. IMPRESSION: Cholelithiasis without cholecystitis. Findings suggesting hepatomegaly and hepatic steatosis or other underlying hepatocellular disease process.
== END 2024-07-10 06:25 | disposition home or self-care (01) ==
LOC: EDH 02:51
DX: K80.50 Calculus of bile duct without cholangitis or cholecystitis without obstruction (principal); K80.20 Calculus of gallbladder without cholecystitis without obstruction; K21.9 Gastro-esophageal reflux disease without esophagitis; Z79.899 Other long term (current) drug therapy
CPT/HCPCS: 99284; 96360; 76705; 82550; 80076; 84484; 80048; 83690; 85025; 81001; 36415; 93005; J7030; J2270; J2405

== ENCOUNTER 2024-10-21 00:44 | Emergency (ER) | payer SELFPAY ==
[~2024-10-21] VITALS: Ht 160 cm; Wt 81.6 kg
[2024-10-21 01:07] LABS: IMMATURE GRANULOCYTE ABSOLUTE 0.03 K/uL (0-1); NUCLEATED RED BLOOD CELLS 0.0 % (0.0-0.19); PLATELET COUNT (AUTO) 306 K/uL (130-400); RED BLOOD CELL COUNT(AUTO) 4.64 MIL/uL (4.00-5.50); RED CELL DISTRIBUTION WIDTH 12.0 % (11.0-15.5); WHITE BLOOD COUNT (AUTO) 11.7 K/uL (4.8-10.8)
[2024-10-21 01:13] LABS: APPEARANCE,URINE CLEAR (CLEAR); GLUCOSE, URINE (UA) NEGATIVE (NEGATIVE); LEUKOCYTE ESTERASE ,URINE NEGATIVE Leu/uL (NEGATIVE); NITRATE,URINE NEGATIVE (NEGATIVE); OCCULT BLOOD,URINE NEGATIVE (NEGATIVE)
[2024-10-21 01:14] LABS: ADD UA MICROSCOPIC NO
[2024-10-21 01:16] LABS: CREATININE 0.8 mg/dL (0.5-1.0); GLOMERULAR FILTR. RATE CALC 86.0 mL/min (>90); GLUCOSE,RANDOM 162.0 mg/dL (70-105); SODIUM SERUM 139.0 mmol/L (136-145); UREA NITROGEN, BLOOD 12.0 mg/dL (7-18)
[2024-10-21 01:20] LABS: ASPARTATE AMINOTRANSFERASE 29.0 U/L (10-37); TOTAL PROTEIN, SERUM 8.0 g/dL (6.0-8.3)
[2024-10-21] MEDS: 0.9%NACL 1000ML 1,000 ML IV ONE (01:48)
--- NOTE | 2024-10-21 02:18 | HMCIMG ---
EXAM: US Abdomen, Right Upper Quadrant. CLINICAL HISTORY: Pain in the abdomen. TECHNIQUE: Right upper quadrant sonography performed with image documentation. COMPARISON: Ultrasound of the gallbladder dated 07/10/2024. FINDINGS: LIVER: The liver is mildly enlarged in size, measuring 18.8 cm, with increased echogenicity. No mass. GALLBLADDER: The gallbladder is distended with a calculus at the gallbladder neck. Mild thickness measures 3 mm. COMMON BILE DUCT: Within normal limits in size. 4 mm. PANCREAS: The distal pancreas is obscured by bowel gas. The visualized portion of the pancreas appears within normal limits. RIGHT KIDNEY: Unremarkable. Normal renal contours. Measures 11.1 x 4.9 x 4.2 cm. No renal mass or calculus. No hydronephrosis. Technically limited evaluation due to increased intestinal air. The patient is not NPO. IMPRESSION: Cholelithiasis without acute cholecystitis. Mild hepatomegaly with fatty changes. No gross interval changes. /Nancy
--- NOTE | 2024-10-21 02:56 | ERN ---
ED Note History of Present Illness Stated Complaint: C/O RUQ PAIN X 3 DAYS Chief Complaint: Abdominal Pain Time Seen by MD: 00:59 Time Seen by Midlevel: 00:59 Dictation: The patient is a 59-year-old female with a history of a diabetes, hypertension who presents to the emergency department with complaints of three days of right upper abdominal pain associated with nonbloody diarrhea. Patient denies any fevers. Allergies: Coded Allergies: No Known Allergies (Unverified Allergy, Unknown, 02/13/24) Home Meds Active Scripts Amoxicillin/Potassium Clav (Amox Tr-K Clv 875-125 mg Tab) 875 Mg-125 Mg Tablet, 1 TAB PO BID for 10 Days, #20 TAB 0 Refills Prov:ARIADNE GIBBS DO 06/04/24 Ciprofloxacin HCl/Hc (Cipro Hc Otic Susp) 0.2 %-1 % Otsus, 3 DROP OTIC BID for 7 Days, #10 ML 0 Refills Prov:KHAI VILLAGOMEZ 05/21/24 Pantoprazole Sodium (Protonix) 40 Mg Ectab, 1 TAB PO DAILY for 30 Days, #30 TAB 0 Refills Prov:TONY SMITH MD 02/13/24 Past Medical History Past Medical History: Diabetes-Type II, Hypertension Surgical History: Other Surgical History Other: LEFT LEG SX Social History: Negative History: Not Applicable RN Note Reviewed/Agreed w/PFSH: Yes Review of System Dictation Constitutional: Negative for fever,chills, and weight loss Eyes: Negative for injury, pain,redness, and discharge ENT: Negative for injury,pain or swelling Cardiovascular: Negative for chest pain, palpitations, and edema Respiratory: Negative for shortness of breath, cough, and wheezing, Abdomen/GI: Negative for , nausea, vomiting, and constipation positive for abdominal pain, diarrhea Back: Negative for injury and pain : Negative for injury, bleeding and discharge MS/Extremity: Negative for injury and deformity Skin: Negative for rash, and discoloration Neuro: Negative for headache, weakness, numbness, tingling, and seizure Psych: Negative for suicide ideation, homicidal ideation, and hallucinations Initial Vital Sign VS Vital Signs Date Time Temp Pulse Resp B/P (MAP) Pulse Ox O2 Delivery O2 Flow Rate FiO2 10/21/24 00:46 98.2 80 20 154/85 96 Room Air 10/21/24 02:03 0 21 Physical Exam Dictation Vital Signs reviewed General Appearance: Alert, oriented x 3, no acute distress, well developed, nourished. Head and Face: non-traumatic. Eyes: PERRL, pink conjunctivas, eyelid no trauma, anterior chamber with arcus s enilis. Ears: Pinnas intact and no signs of trauma or erythema ear canals clear and no discharge TM no erythema Nose: No discharge, no bleeding. Oropharynx: Mouth normal, tongue pink. pharynx clear,no erythema, tonsils no exudates, no abscesses noted, mucous membrane moist Neck: Supple, non-tender, no thyromegaly, no masses, no JVD, no bruits Breast:Deferred Chest:No tenderness, no crepitus, no paradoxical movement, no retractions Lungs:Clear, well-ventilated, symmetric, no rales, no wheezing, no rhonchi, no stridor, good breath sounds bilaterally Heart: Regular rate, regular rhythm, no murmur, no gallops Vascular: no peripheral edema, Abdomen: Soft, positive bowel sounds, nondistended, no guarding, Right upper quadrant tenderness,, no rebound, no masses no hepatomegaly, no splenomegaly, no Arguelles's sign, no hernias. Rectal: Deferred Genital: Deferred Neurological: Normal speech, motor function intact, sensory function intact Musculoskeletal: Neck nontender, full range of motion, back nontender, full range of motion, Extremities: nontender, full range of motion Skin: Color pink, dry, no turgor, no rash, no lacerations, no abrasions, no contusions. Lymphatic: Deferred Results (Laboratory/Radiology) Laboratory/Radiology Laboratory Tests Test 10/21/24 01:00 10/21/24 01:04 White Blood Count 11.7 K/uL (4.8-10.8) H Red Blood Count 4.64 MIL/uL (4.00-5.50) Hemoglobin 14.4 g/dL (12.0-16.0) Hematocrit 42.5 % (36-48) Mean Corpuscular Volume 91.6 fL (79-99) Mean Corpuscular Hemoglobin 31.0 pg (27.0-33.0) Mean Corpuscular Hemoglobin Concent 33.9 g/dL (32.0-36.0) Red Cell Distribution Width 12.0 % (11.0-15.5) Platelet Count 306 K/uL (130-400) Mean Platelet Volume 11.0 fL (7.5-10.5) H Immature Granulocyte % (Auto) 0.3 % (0-1) Neutrophils (%) (Auto) 47.6 % (40.0-77.0) Lymphocytes (%) (Auto) 41.8 % (21.0-51.0) Monocytes (%) (Auto) 7.2 % (3.0-13.0) Eosinophils (%) (Auto) 2.3 % (0.0-8.0) Basophils (%) (Auto) 0.8 % (0.0-5.0) Neutrophils # (Auto) 5.6 K/uL (1.8-7.7) Lymphocytes # (Auto) 4.9 K/uL (1.0-4.8) H Monocytes # (Auto) 0.8 K/uL (0.1-1.0) Eosinophils # (Auto) 0.27 K/uL (0.00-0.70) Basophils # (Auto) 0.09 K/uL (0.00-0.20) Absolute Immature Granulocyte (auto 0.03 K/uL (0-1) Nucleated Red Blood Cells 0.0 % (0.0-0.19) Sodium Level 139 mmol/L (136-145) Potassium Level 3.5 mmol/L (3.5-5.1) Chloride Level 103 mmol/L (101-111) Carbon Dioxide Level 32 mmol/L (21-32) Blood Urea Nitrogen 12 mg/dL (7-18) Creatinine 0.8 mg/dL (0.5-1.0) Glomerular Filtration Rate Calc 86 mL/min (>90) Random Glucose 162 mg/dL (70-105) H Total Calcium 9.2 mg/dL (8.5-10.1) Total Bilirubin 0.4 mg/dL (0.2-1.0) Direct Bilirubin 0.1 mg/dL (0.0-0.3) Aspartate Amino Transf (AST/SGOT) 29 U/L (10-37) Alanine Aminotransferase (ALT/SGPT) 46 U/L (12-78) Alkaline Phosphatase 117 U/L (50-136) Troponin I High Sensitivity 5 ng/L (4-50) Total Protein 8.0 g/dL (6.0-8.3) Albumin 3.6 g/dL (3.5-5.0) Lipase 54 U/L (16-77) Urine Color COLORLESS (YELLOW) Urine Appearance CLEAR (CLEAR) Urine pH 6.0 (5.0-8.0) Urine Specific [place] 1.006 (1.001-1.031) Urine Protein NEGATIVE mg/dL (NEGATIVE) Urine Glucose (UA) NEGATIVE mg/dL (NEGATIVE) Urine Ketones NEGATIVE mg/dL (NEGATIVE) Urine Occult Blood NEGATIVE (NEGATIVE) Urine Nitrate NEGATIVE (NEGATIVE) Urine Bilirubin NEGATIVE mg/dL (NEGATIVE) Urine Urobilinogen 0.2 mg/dL (0.2-1.0) Urine Leukocyte Esterase NEGATIVE Panfilo/uL SERVICE 0110 REASON: abd pain ORDERING PHYSICIAN: KARINA PATEL PROCEDURE: [id number] - US ABDOMINAL RUQ\LTD EXAM: US Abdomen, Right Upper Quadrant. CLINICAL HISTORY: Pain in the abdomen. TECHNIQUE: Right upper quadrant sonography performed with image documentation. COMPARISON: Ultrasound of the gallbladder dated 07/10/2024. FINDINGS: LIVER: The liver is mildly enlarged in size, measuring 18.8 cm, with increased echogenicity. No mass. GALLBLADDER: The gallbladder is distended with a calculus at the gallbladder neck. Mild thickness measures 3 mm. COMMON BILE DUCT: Within normal limits in size. 4 mm. PANCREAS: The distal pancreas is obscured by bowel gas. The visualized portion of the pancreas appears within normal limits. RIGHT KIDNEY: Unremarkable. Normal renal contours. Measures 11.1 x 4.9 x 4.2 cm. No renal mass or calculus. No hydronephrosis. Technically limited evaluation due to increased intestinal air. The patient is not NPO. IMPRESSION: Cholelithiasis without acute cholecystitis. Mild hepatomegaly with fatty changes. No gross interval changes. /[facility] Labs Reviewed?: Yes EKG: (+) rhythm (Sinus rhythm) EKG Comment: Date:10/21/2024 Time:0248 Ventricular rate:75 MD interval:132 QRS duration:81 QT/QTc:404/451 EKG interpretation: Sinus rhythm Reviewed by ED Attending no STEMI ED Course ED Course Orders Procedure Category Date Status Time Cbc With Differential LAB 10/21/24 Complete 00:46 Basic Metabolic Panel LAB 10/21/24 Complete 00:46 Hepatic Function Panel LAB 10/21/24 Complete 00:46 Lipase LAB 10/21/24 Complete 00:46 Urinalysis Profile LAB 10/21/24 Complete 00:57 Troponin I High LAB 10/21/24 Complete Sensitivity 01:10 12 Lead Ekg Tracing- EKG 10/21/24 Transmitted Technical 01:10 0.9%Nacl 1000ml (Ns PHA 10/21/24 Complete 1000ml) 01:30 Morphine 4mg Syg PHA 10/21/24 Complete (Morphine 4mg Syg) 01:30 Ondansetron 4mg Inj PHA 10/21/24 Complete (Zofran 4mg Inj) 01:30 Pantoprazole 40mg Inj PHA 10/21/24 Complete (Protonix 40mg Inj 01:30 Us Abdominal Ruq\Ltd US 10/21/24 Resulted 01:10 Current Medications Medications (Trade) Dose Ordered Sig/Celestine Route PRN Reason Start Time Stop Time Status Last Admin Dose Admin Morphine Sulfate (morPHINE 4MG SYG) 4 mg ONCE ONCE IVP 10/21/24 01:30 10/21/24 01:31 DC 10/21/24 01:48 Ondansetron HCl (zoFRAN 4MG INJ) 4 mg ONCE ONCE IVP 10/21/24 01:30 10/21/24 01:31 DC 10/21/24 01:48 Pantoprazole Sodium (PROTonix 40MG INJ) 40 mg ONCE ONCE IVP 10/21/24 01:30 10/21/24 01:31 DC 10/21/24 01:48 Sodium Chloride 1,000 ml @ 0 mls/hr ONCE ONCE IV 10/21/24 01:30 10/21/24 01:31 DC 10/21/24 01:48 Vital Signs Date Time Temp Pulse Resp B/P (MAP) Pulse Ox O2 Delivery O2 Flow Rate FiO2 10/21/24 02:03 82 18 144/79 98 Room Air* 0 21 10/21/24 00:46 98.2 80 20 154/85 96 Room Air Medical Decision Making MDM The patient is a 59-year-old female with a history of a diabetes, hypertension who presents to the emergency department with complaints of three days of right upper abdominal pain associated with nonbloody diarrhea. Patient denies any fevers. CBC showed mild leukocytosis, no anemia, chemistry showed no electrolyte imbalance, negative lipase, normal liver enzymes, negative troponin, urinalysis unremarkable ultrasound showed a stone at the gallbladder neck. Spoke with general surgery on-call. States if patient is comfortable she can be discharged on antibiotics in pain management and she can follow up in the morning at his office. I discussed case with patient who at this time is pain- free and states that she feels okay to go home and agrees to follow up with him in the morning. On physical exam patient is in no acute distress, nontoxic appearance. Patient will be discharged to follow up in the morning. Differential diagnosis: Cholelithiasis, cholecystitis, pancreatitis, ACS Need for hospitalization: Patient does not meet criteria for hospitalization. There are no social concerns with this patient. DX & DISP Disposition: Discharge Departure Impression: Primary Impression: Cholelithiasis Additional Impression: Biliary colic Condition: Stable Scripts Hydrocodone/Acetaminophen (Hydrocodon-Acetaminophen 5-325) 5 Mg-325 Mg Tablet 1-2 TAB PO Q6HPRN PRN for pain for 3 Days, #15 TAB 0 Refills Prov: KARINA PATEL VETERINARY VIRUS SERUM INSPECTOR 10/21/24 Amoxicillin/Potassium Clav (Amox Tr-K Clv 875-125 mg Tab) 875 Mg-125 Mg Tablet 1 EACH PO BID for 5 Days, #10 TAB 0 Refills Prov: KARINA PATEL VETERINARY VIRUS SERUM INSPECTOR 10/21/24 Additional Instructions: Please follow up with General surgery in the morning. Your labs were unr emarkable. You do have gallstones. Avoid any fatty foods or foods that exacerbate your symptoms. Take your medications as prescribed. If anything worsens please return to ER. FOLLOW-UP WITH PRIMARY CARE PROVIDER IN 1 TO 2 DAYS. TAKE MEDICATIONS DIR ECTED HERE IN THE EMERGENCY ROOM. OKAY TO CONTINUE HOME MEDICATIONS UNLESS OTHERWISE DISCUSSED DURING YOUR VISIT IN THE EMERGENCY ROOM TODAY. RETURN TO YOUR NEAREST EMERGENCY ROOM IF SYMPTOMS WORSEN OR IF THERE IS NO IMPROVEMENT. CALL 911 IF YOU NEED IMMEDIATE ASSISTANCE. TAKE TYLENOL MODJ-HSF-[id number] NEEDED AND IF NO CONTRAINDICATIONS ARE PRESENT. INCREASE ORAL HYDRATION. A WOUND CULTURE OR URINE CULTURE WAS ORDERED HERE IN THE EMERGENCY ROOM DEPARTMENT PLEASE FOLLOW-UP WITH PRIMARY CARE PROVIDER AND ADVISE THEM TO GET REPEAT PORTS FROM OUR FACILITY. IF YOU HAD ANY JAIRON WRAP/SPLINTS THAT WERE APPLIED HERE, PLEASE DO NOT REMOVE THEM UNTIL YOU SEE YOUR PRIMARY CARE OR SPECIALTY. Referrals: SELF,REFERRAL (PCP) BG MEDINA MD Time of Disposition: 03:04 I have reviewed the case, and I agree with, Diagnosis and Plan KARINA PATEL [facility] Oct 21, 2024 02:56
[2024-10-21] MEDS ORDERED: HYDR-4060 PO (03:07)
[2024-10-21] MEDS ORDERED: AMOX1TAB16 PO (03:07)
[2024-10-21] MEDS: AMOX/CLAV 875/125MG TAB PO ONE (03:28)
[2024-10-21 03:33] VITALS: BP 142/78; PULSE 83; RESP 18; TEMP 98.2; O2SAT 98
--- NOTE | 2024-10-21 06:40 | EKG ---
[facility] Test Date: 2024-10-21 Test Time: 02:48:26 Pat Name: ARNALDO GILLESPIE Department: [facility] Room: Gender: F [employer] Supervisor: [id number] : [id number] Requested By: KARINA PATEL Order Number: [id number] Reading MD: Lillian Solorzano Measurements Intervals [place] Rate: 75 P: 25 AL: 132 QRS: 32 QRSD: 81 T: 1 QT: 404 QTc: 451 Interpretive Statements Sinus rhythm Compared to ECG 07/10/2024 03:07:55 No significant changes Electronically Signed On 10-21-2024 08:15:02 CDT by Lillian Solorzano Please click the below link to view image of tracing.
== END 2024-10-21 03:43 | disposition home or self-care (01) ==
LOC: EDH 00:44
DX: K80.70 Calculus of gallbladder and bile duct without cholecystitis without obstruction (principal); E11.9 Type 2 diabetes mellitus without complications; I10 Essential (primary) hypertension; Z79.899 Other long term (current) drug therapy
CPT/HCPCS: 99285; 96374; 76705; 96375; 80076; 84484; 80048; 83690; 85025; 81003; 36415; 93005; J7030; J2405; J2270; J2470

== ENCOUNTER 2024-12-15 22:42 | Emergency (ER) | payer SELFPAY ==
[~2024-12-15] VITALS: Ht 160 cm; Wt 83.5 kg
[~2024-12-15 22:42] MED LIST changes: +HYDR-4060 PO
[2024-12-15] MEDS: TRIAMCINOLONE ACETONIDE 40 MG/ML 1ML VIAL IM ONE (23:43)
[2024-12-15] MEDS: ORPHENADRINE 60MG/2ML IVP ONE (23:44)
[2024-12-15] MEDS: LACTATED RINGERS 1000ML IV STA (23:44)
[2024-12-15 23:52] LABS: APPEARANCE,URINE CLEAR (CLEAR); GLUCOSE, URINE (UA) TRACE mg/dL (NEGATIVE); LEUKOCYTE ESTERASE ,URINE NEGATIVE Leu/uL (NEGATIVE); NITRATE,URINE NEGATIVE (NEGATIVE); OCCULT BLOOD,URINE NEGATIVE (NEGATIVE)
[2024-12-15 23:54] LABS: ADD UA MICROSCOPIC YES
[2024-12-16 00:01] LABS: SQUAMOUS EPITHELIAL CELL,UR RARE /HPF (0-2)
[2024-12-16 00:02] LABS: CREATININE 0.9 mg/dL (0.5-1.0); GLOMERULAR FILTR. RATE CALC 75.0 mL/min (>90); GLUCOSE,RANDOM 164.0 mg/dL (70-105); SODIUM SERUM 140.0 mmol/L (136-145); UREA NITROGEN, BLOOD 13.0 mg/dL (7-18)
--- NOTE | 2024-12-16 00:26 | ERN ---
General Chief Complaint: Abdominal Pain Stated Complaint: C/O ABD PAIN X 2 DAYS Time Seen by MD: 22:46 Source: patient History of Present Illness Initial Comments 59-year-old female with no past medical history beyond a kidney stones comes in complaining of abdominal pain. The pain started in her bilateral flanks she points to her subcostal region. This started two days ago, then the pain migrated down to her bilateral groin and is now centered in her abdomen around the umbilicus. The pain is worse when she sits up and flexes her stomach muscles. She has no change in bowel or urination. Eating okay Timing/Duration: 24 hours, constant Allergies: Coded Allergies: No Known Allergies (Unverified Allergy, Unknown, 02/13/24) Home Meds Active Scripts Hydrocodone/Acetaminophen (Hydrocodon-Acetaminophen 5-325) 5 Mg-325 Mg Tablet, 1-2 TAB PO Q6HPRN PRN for pain for 3 Days, #15 TAB 0 Refills Prov:KARINA PATEL MUSSEL OPENER 10/21/24 Amoxicillin/Potassium Clav (Amox Tr-K Clv 875-125 mg Tab) 875 Mg-125 Mg Tablet, 1 EACH PO BID for 5 Days, #10 TAB 0 Refills Prov:KARINA PATEL MUSSEL OPENER 10/21/24 Amoxicillin/Potassium Clav (Amox Tr-K Clv 875-125 mg Tab) 875 Mg-125 Mg Tablet, 1 TAB PO BID for 10 Days, #20 TAB 0 Refills Prov:ARIADNE GIBBS DO 06/04/24 Ciprofloxacin HCl/Hc (Cipro Hc Otic Susp) 0.2 %-1 % Otsus, 3 DROP OTIC BID for 7 Days, #10 ML 0 Refills Prov:KHAI VILLAGOMEZ 05/21/24 Pantoprazole Sodium (Protonix) 40 Mg Ectab, 1 TAB PO DAILY for 30 Days, #30 TAB 0 Refills Prov:TOYN SMITH MD 02/13/24 Past Medical History Past Medical History: No Pertinent History, Unknown Past Surgical History: Unknown Surgical History Other: LEFT LEG SX Social History Social History: Negative Female( History) History: Not Applicable Constitutional: (-) chills, (-) diaphoresis, (-) fever, (-) malaise, (-) weakness, (-) other documentation EENTM: (-) eye pain, (-) blurred vision, (-) tearing, (-) double vision, (-) ear pain, (-) ear discharge, (-) nose pain, (-) nose congestion, (-) throat pain, (-) Throat swelling, (-) mouth pain, (-) tooth pain, (-) mouth swelling, (-) other documentation Respiratory: (-) cough, (-) orthopnea, (-) short of breath, (-) stridor, (-) wheezing, (-) other documentation Cardiovascular: (-) chest pain, (-) edema, (-) palpitations, (-) syncope, (-) dyspnea on exertion, (-) other documentation Gastrointestinal/Abdominal: (-) nausea, (-) vomiting, (-) diarrhea, (-) abdominal pain, (-) abdominal distention, (-) constipation, (-) rectal bleeding, (-) dark stool/melena, (-) other documentation Genitourinary: (-) vaginal discharge, (-) vaginal bleeding, (-) dysuria, (-) frequency, (-) hematuria, (-) pain, (-) other documentation Musculoskeletal: (+) Flank Pain Physical Exam General Appearance: (+) no apparent distress Orientation: (+) alert, (+) oriented x 3 Head/Face Trauma: No Eye: bilateral eye normal inspection, bilateral eye PERRL, bilateral eye EOMI Ear, Nose, Throat: (+) hearing grossly normal, (+) normal ENT inspection, (+) moist mucous membraine Neck: (+) normal inspection, (+) supple, (+) full range of motion Respiratory: (+) chest non-tender, (+) lungs clear, (+) well ventilated Heart: (+) regular, (+) no gallop Vascular: (+) no edema, (+) normal peripheral pulse Gastrointestinal: (+) soft, (+) bowel sound present, (+) tender Gastrointestinal Comment Patient's abdominal tenderness is worse when she lifts her head up off the bed. Results Laboratory and Microbiology Lab and Micro Result Laboratory Tests Test 12/15/24 22:50 12/15/24 23:34 Urine Color YELLOW (YELLOW) Urine Appearance CLEAR (CLEAR) Urine pH 5.5 (5.0-8.0) Urine Specific [place] 1.029 (1.001-1.031) Urine Protein NEGATIVE mg/dL (NEGATIVE) Urine Glucose (UA) TRACE mg/dL (NEGATIVE) H Urine Ketones NEGATIVE mg/dL (NEGATIVE) Urine Occult Blood NEGATIVE (NEGATIVE) Urine Nitrate NEGATIVE (NEGATIVE) Urine Bilirubin NEGATIVE mg/dL (NEGATIVE) Urine Urobilinogen 3 mg/dL (0.2-1.0) H Urine Leukocyte Esterase NEGATIVE Panfilo/uL Urine RBC 2-5 /HPF (0-1) H Urine WBC 2-5 /HPF (0-1) H Urine Squamous Epithelial Cells RARE /HPF (0-2) Urine Bacteria None /HPF (None Seen) Sodium Level 140 mmol/L (136-145) Potassium Level 3.5 mmol/L (3.5-5.1) Chloride Level 102 mmol/L (101-111) Carbon Dioxide Level 29 mmol/L (21-32) Blood Urea Nitrogen 13 mg/dL (7-18) Creatinine 0.9 mg/dL (0.5-1.0) Glomerular Filtration Rate Calc 75 mL/min (>90) Random Glucose 164 mg/dL (70-105) H Total Calcium 8.8 mg/dL (8.5-10.1) MDM MDM: Differential diagnosis: Muscle tenderness, muscle sprain, dehydration, UTI, recurrent kidney stones, intra-abdominal catastrophe Rationale: Tests considered and ordered secondary to shared decision making include: Previous outside records reviewed: Old ER visits. Risk of complication and/or morbidity or mortality of patient management: None Medications-Per medication reconciliation Need for hospitalization: Patient does meet criteria for hospitalization. Need for emergency major/minor surgery: No There are no social concerns with this patient. Prescription drug management Prescriptions will include symptomatic care Patient's prior external medical records from other ER visits were reviewed by me as indicated. Prior testing and results from previous visits were reviewed. Prior tests were taken into account with medical decision making and resource utilization, independent historian/historians were used to obtain complete medical history. I independently interpreted the test that were performed, results were reviewed by me and considered findings on radiology if ordered. Patient's urine was normal patient's chemistry panel was normal. I gave her a L of fluid as well as some norflex and Toradol. The patient feels much better and would like to go home. ED Course Orders Procedure Category Date Status Time Urinalysis Profile LAB 12/15/24 Complete 22:49 Basic Metabolic Panel LAB 12/15/24 Complete 23:07 Orphenadrine Citrate PHA 12/15/24 Complete (Norflex) 23:30 Ketorolac PHA 12/15/24 Complete Tromethamine 30mg/Ml 23:30 Triamcinolone Acet PHA 12/15/24 Complete 40mg/Ml 1ml (Kenalog 23:30 Lactated Ringers PHA 12/15/24 Complete 1000ml (Lactated 23:07 Current Medications Medications (Trade) Dose Ordered Sig/Celestine Route PRN Reason Start Time Stop Time Status Last Admin Dose Admin Ketorolac Tromethamine (toRADol) 30 mg ONCE ONCE IVP 12/15/24 23:30 12/15/24 23:31 DC 12/15/24 23:44 Lactated Ringer's (Lactated Ringers 1000ml) 1,000 ml BOLUS STAT IV 12/15/24 23:07 12/15/24 23:10 DC 12/15/24 23:44 Orphenadrine Citrate (Norflex) 60 mg ONCE ONCE IVP 12/15/24 23:30 12/15/24 23:31 DC 12/15/24 23:44 Triamcinolone Acetonide (Kenalog 40) 40 mg ONCE ONCE IM 12/15/24 23:30 12/15/24 23:31 DC 12/15/24 23:43 Vital Signs Date Time Temp Pulse Resp B/P (MAP) Pulse Ox O2 Delivery O2 Flow Rate FiO2 12/15/24 22:44 98.6 84 20 138/77 98 Room Air DX & DISP Disposition: Discharge Departure Impression: Primary Impression: Muscle pain Condition: Stable Additional Instructions: Based on your physical exam and the fact that the pain is much worse when you tense her stomach muscles strongly suggests that you have muscle pain as opposed to an intra-abdominal process that could be causing you pain. In addition you got better with fluid and pain medications and muscle relaxants. I do wonder if you are dehydrated as that can cause muscle pain. Drink plenty of fluids every day in this hot weather. Drink enough fluids so that every day your urine runs clear at least once a day. You can treat your current pain with Tylenol and ibuprofen. Please follow-up with her primary care doctor if your symptoms do not get better. If your stomach pain gets worse and you have nausea vomiting diarrhea and unable to keep herself hydrated please come to the emergency room. Referrals: SELF,REFERRAL (PCP) LES BUTCHER MD Dec 16, 2024 00:26
[2024-12-16 00:51] VITALS: BP 129/72; PULSE 80; RESP 17; TEMP 98.2; O2SAT 99
== END 2024-12-16 00:52 | disposition home or self-care (01) ==
LOC: EDH 22:42
DX: M79.10 Myalgia, unspecified site (principal); Z79.899 Other long term (current) drug therapy; Z87.442 Personal history of urinary calculi
CPT/HCPCS: 99284; 96374; 96361; 96375; 80048; 81001; 36415; 96372; J1885; J7120; J3301; J2360

== ENCOUNTER 2025-03-08 10:42 | Emergency (ER) | payer SELFPAY ==
[~2025-03-08] VITALS: Ht 162.6 cm; Wt 81.6 kg
--- NOTE | 2025-03-08 10:59 | ERN ---
ED Note History of Present Illness Stated Complaint: RIGHT HIP PAIN Chief Complaint: Hip Pain/Injury Time Seen by MD: 10:54 Dictation: PATIENT IS A 59-YEAR-OLD FEMALE COMING IN TODAY WITH COMPLAINTS OF RIGHT HIP PAIN AFTER SHE HAD A NEAR SYNCOPAL EPISODE LAST NIGHT AND FELL INTO A WALL. SHE DENIES NAUSEA VOMITING SHE DOES NOT HAVE ANY HEADACHE. SHE DID STATE SHE HIT HIT HER HEAD ON THE SHEET [place]OCK. SHE STATES SHE JUST WENT BACK TO BED AND HAD NO COMPLAINTS AT THIS TIME. WAS JUST WORRIED TODAY. SHE DID NOT GO SEE HER DOCTOR AT [facility] IS 0 GAIT IS STEADY TO TRIAGE she is also complaining of sacral coccyx Allergies: Coded Allergies: No Known Allergies (Unverified Allergy, Unknown, 02/13/24) Home Meds Active Scripts Hydrocodone/Acetaminophen (Hydrocodon-Acetaminophen 5-325) 5 Mg-325 Mg Tablet, 1-2 TAB PO Q6HPRN PRN for pain for 3 Days, #15 TAB 0 Refills Prov:KARINA PATEL DIRECTOR OF HOME HEALTH SERVICES 10/21/24 Amoxicillin/Potassium Clav (Amox Tr-K Clv 875-125 mg Tab) 875 Mg-125 Mg Tablet, 1 EACH PO BID for 5 Days, #10 TAB 0 Refills Prov:KARINA PATEL DIRECTOR OF HOME HEALTH SERVICES 10/21/24 Amoxicillin/Potassium Clav (Amox Tr-K Clv 875-125 mg Tab) 875 Mg-125 Mg Tablet, 1 TAB PO BID for 10 Days, #20 TAB 0 Refills Prov:ARIADNE GIBBS DO 06/04/24 Ciprofloxacin HCl/Hc (Cipro Hc Otic Susp) 0.2 %-1 % [place], 3 DROP OTIC BID for 7 Days, #10 ML 0 Refills Prov:KHAI VILLAGOMEZ 05/21/24 Pantoprazole Sodium (Protonix) 40 Mg Ectab, 1 TAB PO DAILY for 30 Days, #30 TAB 0 Refills Prov:TONY SMITH MD 02/13/24 Past Medical History Past Medical History: No Pertinent History, Unknown Surgical History: Unknown Surgical History Other: LEFT LEG SX Social History: Negative History: Not Applicable RN Note Reviewed/Agreed w/PFSH: Yes Review of System Dictation CONSTITUTIONAL: Negative except for HPI HEAD/FACE: Negative except for HPI EENT: Negative except for HPI RESPIRATORY: Negative except for HPI GASTROINTESTINAL/ABDOMINAL: Negative except for HPI GENITOURINARY: Negative except for HPI MUSCULOSKELETAL: Negative except for HPI sacral coccyx/right hip pain INTEGUMENTARY: Negative except for HPI NEUROLOGICAL/PSYCH: Negative except for HPI near-syncope HEMATOLOGIC/LYMPHATIC: Negative except for HPI All Systems Negative, Except as noted above. 13 point review of systems assessed and all negative except for above. Initial Vital Sign VS Vital Signs Date Time Temp Pulse Resp B/P (MAP) Pulse Ox O2 Delivery O2 Flow Rate FiO2 03/08/25 10:43 97.7 84 16 153/80 97 Room Air 03/08/25 11:16 0 21 Physical Exam Dictation Vital Signs reviewed General Appearance: Alert, oriented x 3, mild acute distress, well developed, nourished. Obese Head and Face: non-traumatic. Eyes: PERRL, pink conjunctivas, eyelid no trauma, anterior chamber with arcus senilis. Ears: Pinnas intact and no signs of trauma or erythema ear canals clear and no discharge TM no erythema Nose: No discharge, no bleeding. Oropharynx: Mouth normal, tongue pink, pharynx clear,no erythema, tonsils no exudates, no abscesses noted, mucous membrane moist Neck: Supple, non-tender, no thyromegaly, no masses, no JVD, no bruits Breast:Deferred Chest:No tenderness, no crepitus, no paradoxical movement, no retractions Lungs:Clear, well-ventilated, symmetric, no rales, no wheezing, no rhonchi, no stridor, good breath sounds bilaterally Heart: Regular rate, regular rhythm, no murmur, no gallops Vascular: no peripheral edema, Abdomen: Soft, positive bowel sounds, nondistended, no guarding, nontender, no rebound, no masses no hepatomegaly, no splenomegaly, no Arguelles's sign, no hernias. Rectal: Deferred Genital: Deferred Neurological: Normal speech, motor function intact, sensory function intact NIH is 0 Musculoskeletal: Neck nontender, full range of motion, diffuse sacral coccyx pain full range of motion, Extremities: nontender, full range of motion mild right lateral hip pain with no shortening or rotation. Weight-bearing no Skin: Color pink, dry, no turgor, no rash, no lacerations, no abrasions, no contusions. Lymphatic: Deferred Results (Laboratory/Radiology) Laboratory/Radiology Laboratory Tests Test 03/08/25 11:06 White Blood Count 11.4 K/uL (4.8-10.8) H Red Blood Count 4.32 MIL/uL (4.00-5.50) Hemoglobin 13.6 g/dL (12.0-16.0) Hematocrit 40.1 % (36-48) Mean Corpuscular Volume 92.8 fL (79-99) Mean Corpuscular Hemoglobin 31.5 pg (27.0-33.0) Mean Corpuscular Hemoglobin Concent 33.9 g/dL (32.0-36.0) Red Cell Distribution Width 12.3 % (11.0-15.5) Platelet Count 314 K/uL (130-400) Mean Platelet Volume 10.7 fL (7.5-10.5) H Immature Granulocyte % (Auto) 0.5 % (0-1) Neutrophils (%) (Auto) 59.7 % (40.0-77.0) Lymphocytes (%) (Auto) 31.9 % (21.0-51.0) Monocytes (%) (Auto) 6.5 % (3.0-13.0) Eosinophils (%) (Auto) 0.7 % (0.0-8.0) Basophils (%) (Auto) 0.7 % (0.0-5.0) Neutrophils # (Auto) 6.8 K/uL (1.8-7.7) Lymphocytes # (Auto) 3.6 K/uL (1.0-4.8) Monocytes # (Auto) 0.7 K/uL (0.1-1.0) Eosinophils # (Auto) 0.08 K/uL (0.00-0.70) Basophils # (Auto) 0.08 K/uL (0.00-0.20) Absolute Immature Granulocyte (auto 0.06 K/uL (0-1) Nucleated Red Blood Cells 0.0 % (0.0-0.19) Sodium Level 139 mmol/L (136-145) Potassium Level 4.3 mmol/L (3.5-5.1) Chloride Level 103 mmol/L (101-111) Carbon Dioxide Level 29 mmol/L (21-32) Blood Urea Nitrogen 9 mg/dL (7-18) Creatinine 0.8 mg/dL (0.5-1.0) Glomerular Filtration Rate Calc 86 mL/min (>90) Random Glucose 129 mg/dL (70-105) H Total Calcium 9.1 mg/dL (8.5-10.1) Troponin I High Sensitivity < 4 ng/L (4-50) L CR Sacrum and Coccyx, 3 View. CLINICAL HISTORY: FALL COMPARISON: None provided. FINDINGS: BONES: No acute fracture or aggressive appearing osseous lesion. Bony alignment is anatomic. SOFT TISSUES: The soft tissues are unremarkable. IMPRESSION: No acute osseous abnormality. /[place] CR right hip, 3 views. CLINICAL HISTORY Anterolateral right hip pain status post fall yesterday. COMPARISON None provided. FINDINGS BONES No acute fracture or aggressive-appearing osseous lesion is identified involving the right hip, proximal femur, or visualized pelvis. No focal lytic or sclerotic lesion is seen. JOINTS Moderate osteoarthritis of the right hip is present, characterized by joint space narrowing, marginal osteophyte formation, and subchondral sclerosis. No hip dislocation is demonstrated. SOFT TISSUES Visualized soft tissues about the right hip are unremarkable, without soft tissue gas or radiopaque foreign body. IMPRESSION * Moderate osteoarthritis of the right hip. * No radiographic evidence of acute fracture or dislocation. /[place] Labs Reviewed?: Yes EKG: (+) NSR EKG Comment: 1106/EKG normal sinus rhythm/heart rate 86/axis normal/no ectopy ED Course ED Course Orders Procedure Category Date Status Time Hip Unilat 2-3vw Right RAD 03/08/25 Resulted 10:57 Acetaminophen 500mg PHA 03/08/25 Complete Tab (Tylenol 500mg T 11:00 Cbc With Differential LAB 03/08/25 Complete 10:57 12 Lead Ekg Tracing- EKG 03/08/25 Complete Technical 10:57 Troponin I High LAB 03/08/25 Complete Sensitivity 10:57 Basic Metabolic Panel LAB 03/08/25 Complete 10:57 Sacrum/Coccyx 2+Vws RAD 03/08/25 Resulted 11:25 Current Medications Medications (Trade) Dose Ordered Sig/Celestine Route PRN Reason Start Time Stop Time Status Last Admin Dose Admin Acetaminophen (TYLenol 500MG TAB) 1,000 mg ONCE ONCE PO 03/08/25 11:00 03/08/25 11:01 DC 03/08/25 11:36 Vital Signs Date Time Temp Pulse Resp B/P (MAP) Pulse Ox O2 Delivery O2 Flow Rate FiO2 03/08/25 11:16 97.7 84 16 153/80 97 Room Air* 0 21 03/08/25 10:43 97.7 84 16 153/80 97 Room Air 1250/patient aware that she has negative x-rays of sacral Coccyx and right hip. Cardiac workup negative Patient dehydrated Given rehydration instructions follow up with her doctor. HEART Score Response (Comments) Value History: Low suspicion (0) 0 Age: 45-65yrs (+1) 1 Risk Factors: 1-2 risk factors (+1) 1 Initial Troponin: Normal limit (0) 0 Total 2 Medical Decision Making MDM MDM: Differential diagnosis: ACS/AMI/arrhythmia/electrolyte imbalance/dehydration/hip fracture/coccyx sacral fracture. Vasovagal Rationale: Tests considered and ordered secondary to shared decision making include: EKG/labs/radiology Previous outside records reviewed: Old ER visits. Risk of complication and/or morbidity or mortality of patient management: None Medications-Per medication reconciliation Need for hospitalization: Patient does not meet criteria for hospitalization. None Need for emergency major/minor surgery: No There are no social concerns with this patient. Prescription drug management ibuprofen Prescriptions will include symptomatic care Patient's prior external medical records from other ER visits were reviewed by me as indicated. Prior testing and results from previous visits were reviewed. Prior tests were taken into account with medical decision making and resource utilization, independent historian/historians were used to obtain complete medical history. I independently interpreted the test that were performed, results were reviewed by me and considered findings on radiology if ordered. Medical management and examination interpretation discussions were had by me with other qualified healthcare professionals as indicated for the patient's care. DX & DISP Disposition: Discharge Departure Impression: Primary Impression: Contusion of right hip, initial encounter Additional Impressions: Contusion of back, Dehydration, Near syncope Condition: Stable Scripts Ibuprofen (Ibuprofen 800 mg Tab) 800 Mg Tab 800 MG PO Q8H PRN for fever or pain, #30 TAB 0 Refills Prov: LORIE WATSON DIRECTOR OF HOME HEALTH SERVICES 03/08/25 Additional Instructions: Follow-up with primary care provider in 1 to 2 days. Take medications as directed here in the emergency room. Okay to continue home medications unless otherwise discussed during your visit in the emergency room today. Return to your nearest emergency room if symptoms worsen or if there is no improvement. Call 911 if you need immediate assistance. Take Tylenol or Motrin [id number] as needed and if no contraindications are present. Increase oral hydration. A wound culture or urine culture was ordered here in the emergency room department please follow-up with primary care provider and advise them to get repeat ports from our facility. If you had any Foster wrap/splints th at were applied here, please do not remove them until you see your primary care or specialty. Diet and activity as tolerated. Take ibuprofen with food as needed for pain. Increase your water intake. See your primary care doctor for follow up and management Referrals: SELF,REFERRAL (PCP) Time of Disposition: 12:49 I have reviewed the case, and I agree with, Diagnosis and Plan LORIE WATSON [facility] Mar 08, 2025 10:59
--- NOTE | 2025-03-08 11:13 | EKG ---
[facility] Test Date: 2025-03-08 Test Time: 11:06:54 Pat Name: ARNALDO GILLESPIE Department: [facility] Room: Gender: F Plans Examiner: [id number] : 1965 Requested By: LORIE WATSON Order Number: [id number] Reading MD: Buck Briceño Measurements Intervals [place] Rate: 86 P: 45 SD: 121 QRS: 42 QRSD: 73 T: 22 QT: 351 QTc: 420 Interpretive Statements Sinus rhythm Compared to ECG 10/21/2024 02:48:26 No significant changes Electronically Signed On 03-08-2025 16:16:38 LIBRARIAN by Buck Briceño Please click the below link to view image of tracing.
[2025-03-08 11:14] LABS: IMMATURE GRANULOCYTE ABSOLUTE 0.06 K/uL (0-1); NUCLEATED RED BLOOD CELLS 0.0 % (0.0-0.19); PLATELET COUNT (AUTO) 314 K/uL (130-400); RED BLOOD CELL COUNT(AUTO) 4.32 MIL/uL (4.00-5.50); RED CELL DISTRIBUTION WIDTH 12.3 % (11.0-15.5); WHITE BLOOD COUNT (AUTO) 11.4 K/uL (4.8-10.8)
[2025-03-08 11:34] LABS: CREATININE 0.8 mg/dL (0.5-1.0); GLOMERULAR FILTR. RATE CALC 86.0 mL/min (>90); GLUCOSE,RANDOM 129.0 mg/dL (70-105); SODIUM SERUM 139.0 mmol/L (136-145); UREA NITROGEN, BLOOD 9.0 mg/dL (7-18)
--- NOTE | 2025-03-08 12:21 | HMCIMG ---
EXAM CR right hip, 3 views. CLINICAL HISTORY Anterolateral right hip pain status post fall yesterday. COMPARISON None provided. FINDINGS BONES No acute fracture or aggressive-appearing osseous lesion is identified involving the right hip, proximal femur, or visualized pelvis. No focal lytic or sclerotic lesion is seen. JOINTS Moderate osteoarthritis of the right hip is present, characterized by joint space narrowing, marginal osteophyte formation, and subchondral sclerosis. No hip dislocation is demonstrated. SOFT TISSUES Visualized soft tissues about the right hip are unremarkable, without soft tissue gas or radiopaque foreign body. IMPRESSION * Moderate osteoarthritis of the right hip. * No radiographic evidence of acute fracture or dislocation. /[place]
--- NOTE | 2025-03-08 12:25 | HMCIMG ---
EXAM: CR Sacrum and Coccyx, 3 View. CLINICAL HISTORY: FALL COMPARISON: None provided. FINDINGS: BONES: No acute fracture or aggressive appearing osseous lesion. Bony alignment is anatomic. SOFT TISSUES: The soft tissues are unremarkable. IMPRESSION: No acute osseous abnormality. /[place]
[2025-03-08] MEDS ORDERED: IBUP-2077 PO (12:49)
[2025-03-08 12:52] VITALS: BP 138/74; PULSE 82; RESP 16; TEMP 97.7; O2SAT 97
== END 2025-03-08 12:53 | disposition home or self-care (01) ==
LOC: EDH 10:42
DX: S70.01XA Contusion of right hip, initial encounter (principal); S20.229A Contusion of unspecified back wall of thorax, initial encounter; E86.0 Dehydration; R55 Syncope and collapse; Z79.899 Other long term (current) drug therapy; W18.39XA Other fall on same level, initial encounter; Y93.89 Activity, other specified; Y92.89 Other specified places as the place of occurrence of the external cause; Y99.8 Other external cause status
CPT/HCPCS: 36415; 72220; 73502; 80048; 84484; 85025; 93005; 99285